=== PATIENT | female | born 1960 | race Caucasian/White ===

== ENCOUNTER → 2017-11-10 08:54 | Outpatient (CLI) | payer OTHER, SELFPAY ==
[2017-11-10 09:51] LABS: Add Manual Diff / Slide Review NO; Basophils Percent Auto 0.6 % (0-2); Eosinophils Percent Auto 0.9 % (2-4); Hematocrit 42.2 % (36-46); Hemoglobin 14.1 g/dL (12.0-16.0); Lymphocytes Percent Auto 38.1 % (25-40); Mean Corpuscular HGB Conc 33.6 % (30-36); Mean Corpuscular Hemoglobin 26.6 PG (26-34); Mean Corpuscular Volume 79.2 fL (80-100); Monocytes Percent Auto 5.7 % (3-14); Neutrophils Absolute Auto 4300 /uL (3000-5900); Neutrophils Percent Auto 54.7 % (50-75); Platelet Count 239 X10^3/uL (150-400); Red Blood Cell Count 5.32 X10^6/uL (4.0-5.2); White Blood Cell Count 7.9 X10^3/uL (4.5-11.0)
[2017-11-10 10:09] LABS: Appearance Urine UA CLEAR; Bilirubin Urine UA NEGATIVE (NEGATIVE); Color Urine UA YELLOW; Glucose Urine UA NEGATIVE (Normal); Ketones Urine UA NEGATIVE (NEGATIVE); Leukocyte Esterase Urine UA NEGATIVE (NEGATIVE); Nitrite Urine UA Negative (Negative); Occult Blood Urine UA 3+ (Negative); Protein Urine UA NEGATIVE (Negative); Specific Gravity Urine UA 1.015 (1.000-1.035); Urobilinogen Urine UA 0.2 E.U./dL (0.2); pH Urine UA 5.5 (4.5-8.0)
[2017-11-10 10:10] LABS: Albumin 4.2 g/dL (3.5-5.0); BUN Creatinine Ratio 15.6 (6-22); Blood Urea Nitrogen 14 mg/dL (7-17); Calcium 9.3 mg/dL (8.4-10.2); Carbon Dioxide 24 mmol/L (22-32); Chloride 107 mmol/L (98-107); Estimated Glomerular Filt Rate > 60.0 mL/min (>60); Glucose 102 mg/dL (70-100); HEMOLYSIS < 15 (0-50); Phosphorous 3.2 mg/dL (2.5-4.5); Potassium 4.5 mmol/L (3.4-5.1); Sodium 142 mmol/L (137-145)
[2017-11-10 10:37] LABS: Vitamin D 25 Hydroxy (D3) 27.5 ng/mL (30.0-100.0)
[2017-11-10 11:42] LABS: Bacteria Urine Few (2-10); Culture Indicated Urine Cult Not Indicated; RBC Urine 5-10/HPF (0-5/HPF); Squamous Epithelial Cell Urine 0-1 /HPF; WBC Urine 0-1/HPF (0-5/HPF)
[2017-11-12 14:17] LABS: Parathyroid Hormone Int 118 pg/mL (14-64)
[2017-11-13 16:48] LABS: Tacrolimus 6.9 mcg/L (5.0-20.0)
== END ==
PROVIDERS: Family Provider Family Medicine; PCP Family Medicine; Visit Provider Internal Medicine Nephrology
DX: Z94.0 Kidney transplant status (principal); N25.81 Secondary hyperparathyroidism of renal origin
CPT/HCPCS: 36415; 80069; 80197; 81001; 82306; 83970; 85025

== ENCOUNTER 2018-04-01 08:53 | Emergency (ER) | payer OTHER, SELFPAY ==
[2018-04-01 08:58] VITALS: BP 134/81; PULSE 99; RESP 22; TEMP 36.8; O2SAT 98; BMI 29.8
--- NOTE | 2018-04-01 09:38 | DI.RAD.S_ITS ---
PROCEDURE: XR CHEST 2V INDICATIONS: cough for 3 weeks TECHNIQUE: 2 views of the chest were acquired. COMPARISON: [facility], CHEST 2 VIEW, 10/23/2011, 8:00. [facility], CHEST 2 VIEW, 01/11/2016, 11:02. FINDINGS: Surgical changes and devices: None. Lungs and pleura: No pleural effusions or pneumothorax. Lungs are clear. Mediastinum: Mediastinal contours are normal. Heart size is normal. Bones and chest wall: No suspicious bony abnormalities. Soft tissues appear unremarkable. IMPRESSION: No acute cardiopulmonary disease. Dictated by: Odalys Bermeo M.D. on 04/01/2018 at 10:51 Approved by: Odalys Bermeo M.D. on 04/01/2018 at 10:53
[2018-04-01 10:07] LABS: Influenza A and B by PCR Rapid Negative (Negative)
--- NOTE | 2018-04-01 10:32 | ED.SOB ---
HPI - SOB/Dyspnea General Chief Complaint: Shortness of Breath/Dyspnea Stated Complaint: 'CHECKED FOR PNEUMONIA' Time Seen by Provider: 04/01/18 10:21 Source: patient and family () Mode of arrival: ambulatory Limitations: no limitations History of Present Illness This is a 57-year-old female comes to the emergency department with complaint of nasal congestion, cough that has been nonproductive for the last 4 weeks. Patient states she saw called her primary care physician who put her on amoxicillin she is on day 6 of a 10 day course. Patient has not had any known fevers although she has felt hot and cold at home overnight. She has not really had any chest congestion it has been more upper respiratory. She is not having any wheezing or difficulty with breathing. She denies any chest pain. She denies any nausea and/or vomiting. She denies any GI or urinary symptoms. She has a history significant for renal transplant and is on immunosuppressive medications. 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 Patient has tried some Flonase but without any success. Related Data Home Medications Medication Instructions Recorded Confirmed mycophenolate mofetil [CellCept] 500 mg PO BID #0 10/17/11 04/01/18 tacrolimus [Prograf] mg PO #0 10/17/11 amoxicillin-pot clavulanate 875 mg PO BIDX10 04/01/18 04/01/18 [Augmentin] citalopram [Celexa] 20 mg PO DAILY 04/01/18 04/01/18 Previous Rx's Medication Instructions Recorded zolpidem 5 mg PO HS #30 tab 05/01/16 codeine-guaifenesin [Cheratussin 10 ml PO Q4-6H PRN #118 ml 04/01/18 AC] Allergies Allergy/AdvReac Type Severity Reaction Status Date / Time latex [LATEX] Allergy Unknown Unverified 07/01/17 13:07 NSAIDS (Non-Steroidal Allergy Unknown UNKNOWN - Unverified 07/01/17 13:07 Anti-Inflamma HAS KIDNEY TRANSPLANT TAPE Allergy Mild RASH Uncoded 07/01/17 13:07 Review of Systems Review of Systems ROS Unobtainable: All systems reviewed & are unremarkable except as noted in HPI and below Constitutional Denies chills, Denies excessive sweating, Denies fever(s), Denies headache(s), Denies lethargy and Denies weakness ENT Ears, Nose, Mouth, and Throat: Denies headache(s) and Reports nasal congestion Cardiovascular Denies chest pain, Denies irregular heart rhythm, Denies lightheadedness, Denies palpitations, Denies dyspnea, Denies dyspnea on exertion and Denies orthopnea Respiratory Reports change in phlegm color (green), Denies chest congestion, Reports cough, Denies excessive phlegm production, Denies pain on inspiration, Denies pain with cough, Denies dyspnea, Denies dyspnea on exertion and Denies wheezing Gastrointestinal Gastrointestinal: Denies abdominal pain, Denies change in bowel habits, Denies diarrhea, Denies nausea and Denies vomiting Musculoskeletal Reports myalgias Integumentary/Breasts Denies rash Neurologic Denies headache(s) and Denies weakness Endocrine Denies excessive sweating and Denies palpitations Allergic/Immunologic Denies wheezing PFSH Surgical History Renal transplant, status post (Acute) Status post delivery Status post delivery Status post delivery Status post delivery Family History Mother Age: 77 Uncomplicated asthma, unspecified asthma severity Social History Smoking Status: Never smoker Exam Narrative Exam Narrative: GEN: well nourished, well appearing female, alert and oriented x 3, patient appears to be in mild distress. HEENT: Atraumatic, pupils are equal round reactive to light, extraocular movements are intact, nares clear bilateral, TMs are clear with no fluid, there is no conjunctival pallor. Throat is clear without any exudates, erythema, tonsillar enlargement or uvular deviation, mild cervical lymphadenopathy. HEART: Regular rate and rhythm without murmur, clicks, rubs. LUNGS:Lungs clear to auscultation, no wheezes, rales, crackles, chest moves symmetrically, no tachypnea, no accessory muscle use. Patient does cough with deep inhalation. ABD:bowel sounds normal, soft, non-tender, no guarding, rebound, rigidity, no masses noted, no hepatosplenomegaly MSCL: Non-tender, no muscle atrophy, muscles strength 5/5 upper and lower extremities, full range of motion, normal gait NEURO:CN 2-12 intact, sensation normal Initial Vital Signs Initial Vital Signs: Vital Signs Temperature 98.2 F 04/01/18 08:58 Pulse Rate 99 H 04/01/18 08:58 Respiratory Rate 22 04/01/18 08:58 Blood Pressure 134/81 04/01/18 08:58 Pulse Oximetry 98 04/01/18 08:58 Course Orders Ordered: ED Orders 04/01/18 11:03 Blood Culture Stat Complete Blood Count AUTO DIFF Stat Comprehensive Metabolic Panel Stat Lactate (Lactic Acid) Stat Procalcitonin Stat Vital Signs - 8 hr 04/01/18 12:19 Pulse Rate 90 Respiratory Rate 20 Blood Pressure 115/75 Pulse Oximetry 100 MDM - SOB/Dyspnea Lab Data Attestation: I reviewed the patient's lab results. Result diagrams: 04/01/18 11:03 04/01/18 11:03 Lab Results 04/01/18 04/01/18 04/01/18 Range/Units 09:40 11:03 11:03 WBC 9.1 (4.5-11.0) X10^3/uL RBC 5.31 H (4.0-5.2) X10^6/uL Hgb 14.2 (12.0-16.0) g/dL Hct 42.4 (36-46) % MCV 79.8 L (80-100) fL MCH 26.7 (26-34) PG MCHC 33.5 (30-36) % RDW 14.7 (11.6-14.8) % Plt Count 230 (150-400) X10^3/uL Neut % (Auto) 62.3 (50-75) % Lymph % (Auto) 29.5 (25-40) % [place] % (Auto) 6.1 (3-14) % Eos % (Auto) 1.6 L (2-4) % Baso % (Auto) 0.5 (0-2) % Neut # (Auto) 5700 (2737-8223) /uL Sodium (137-145) mmol/L Potassium (3.4-5.1) mmol/L Chloride (98-107) mmol/L Carbon Dioxide (22-32) mmol/L BUN (7-17) mg/dL Creatinine (0.52-1.04) mg/dL Estimated GFR (>60) mL/min BUN/Creatinine Ratio (6-22) Glucose (70-100) mg/dL Lactate (0.7-2.1) mmol/L Calcium (8.4-10.2) mg/dL Total Bilirubin (0.2-1.3) mg/dL AST (14-36) IU/L ALT (9-52) IU/L Alkaline Phosphatase (38-126) U/L Total Protein (6.3-8.2) g/dL Albumin (3.5-5.0) g/dL Globulin (1.7-4.1) g/dL Albumin/Globulin Ratio (1.0-2.8) Procalcitonin < 0.05 (<0.5) ng/mL Influenza A & B (PCR) Negative (Negative) 04/01/18 04/01/18 Range/Units 11:03 11:03 WBC (4.5-11.0) X10^3/uL RBC (4.0-5.2) X10^6/uL Hgb (12.0-16.0) g/dL Hct (36-46) % MCV (80-100) fL MCH (26-34) PG MCHC (30-36) % RDW (11.6-14.8) % Plt Count (150-400) X10^3/uL Neut % (Auto) (50-75) % Lymph % (Auto) (25-40) % [place] % (Auto) (3-14) % Eos % (Auto) (2-4) % Baso % (Auto) (0-2) % Neut # (Auto) (3672-2602) /uL Sodium 141 (137-145) mmol/L Potassium 4.6 (3.4-5.1) mmol/L Chloride 106 (98-107) mmol/L Carbon Dioxide 25 (22-32) mmol/L BUN 14 (7-17) mg/dL Creatinine 0.80 (0.52-1.04) mg/dL Estimated GFR > 60.0 (>60) mL/min BUN/Creatinine Ratio 17.5 (6-22) Glucose 86 (70-100) mg/dL Lactate 0.8 (0.7-2.1) mmol/L Calcium 9.6 (8.4-10.2) mg/dL Total Bilirubin 0.5 (0.2-1.3) mg/dL AST 28 (14-36) IU/L ALT 26 (9-52) IU/L Alkaline Phosphatase 102 (38-126) U/L Total Protein 8.0 (6.3-8.2) g/dL Albumin 4.2 (3.5-5.0) g/dL Globulin 3.8 (1.7-4.1) g/dL Albumin/Globulin Ratio 1.1 (1.0-2.8) Procalcitonin (<0.5) ng/mL Influenza A & B (PCR) (Negative) Imaging Data Chest x-ray: Radiologist's impression: [address] [address] XRay Report Signed Patient: Octavia Sanches MR#: [id number] : 1960 Acct:[id number] Age/Sex: 57 / F Date of Service: 04/01/18 Loc: ED Accession Number: [id number] Procedure: XR chest 2V Ordering Provider: Tonia Banks D.O. PROCEDURE: XR CHEST 2V INDICATIONS: cough for 3 weeks TECHNIQUE: 2 views of the chest were acquired. COMPARISON: [facility], CHEST 2 VIEW, 10/23/2011, 8:00. [facility], CHEST 2 VIEW, 01/11/2016, 11:02. FINDINGS: Surgical changes and devices: None. Lungs and pleura: No pleural effusions or pneumothorax. Lungs are clear. Mediastinum: Mediastinal contours are normal. Heart size is normal. Bones and chest wall: No suspicious bony abnormalities. Soft tissues appear unremarkable. IMPRESSION: No acute cardiopulmonary disease. Dictated by: Odalys Bermeo M.D. on 04/01/2018 at 10:51 Approved by: Odalys Bermeo M.D. on 04/01/2018 at 10:53 [facility] Narrative Medical decision making narrative: Discussed patient she has been on amoxicillin for almost a complete course. She does not have any changes on her chest x-ray is clear on exam. I do not think that she has a pneumonia at this time. Influenza swab was negative. She does have quite a bit of nasal congestion. She does not have any sinus pressure or other symptoms concerning for bacterial sinusitis. We did did discuss of Flonase is not helpful we could try a little bit of Afrin although she will uses for about 2 days. Sudafed is probably not appropriate medication with her renal transplant history. We could do some anti cough medication. I do recommend she has another follow-up in the short term as she does have some immune suppression but not finding any other concerning symptoms or other signs of major infection at this time. Discharge Plan Departure Patient Disposition: Home Clinical Impression: URI (upper respiratory infection) Discharge Date/Time: 04/01/18 12:20 Interventions: ED Discharge Assessment Last Done: 04/01/18 12:19 Instructions: DI for Viral Upper Respiratory Infection -- Adult Activity Restrictions/Additional Instructions: Follow-up with your physician or transplant team in the next 3-5 days for recheck. Call today for an appointment. I would recommend that you continue Flonase. You may use Afrin once daily for 2 days do not use for prolonged perior or you will get rebound nasal congestion. You may take cough medication as prescribed, this medication can make you sleepy do not drive, perform hazards activities or make any major decisions while taking these medications. Do not take with other sleep aids or alcohol/depressants. Continue your other home medications as prescribed. Return to the emergency department for fevers that are persistent, difficulty breathing, new chest pain or pressure, passing out, persistent vomiting, stridor or audible wheezing or other new or concerning symptoms. Prescriptions: New codeine-guaifenesin [Cheratussin AC] 10-100 mg/5 mL liquid 10 ml PO Q4-6H PRN (Reason: cough) Qty: 118 RF: 0 No Action tacrolimus [Prograf] 1 MG capsule PO Qty: 0 RF: 0 mycophenolate mofetil [CellCept] 500 MG tablet 500 mg PO BID Qty: 0 RF: 0 zolpidem 5 MG tablet 5 mg PO HS Qty: 30 RF: 1 citalopram [Celexa] 20 mg tablet 20 mg PO DAILY RF: 0 amoxicillin-pot clavulanate [Augmentin] 875 MG/125 MG tablet 875 mg PO BIDX10 RF: 0
[2018-04-01 11:25] LABS: Add Manual Diff / Slide Review NO; Basophils Percent Auto 0.5 % (0-2); Eosinophils Percent Auto 1.6 % (2-4); Hematocrit 42.4 % (36-46); Hemoglobin 14.2 g/dL (12.0-16.0); Lymphocytes Percent Auto 29.5 % (25-40); Mean Corpuscular HGB Conc 33.5 % (30-36); Mean Corpuscular Hemoglobin 26.7 PG (26-34); Mean Corpuscular Volume 79.8 fL (80-100); Monocytes Percent Auto 6.1 % (3-14); Neutrophils Absolute Auto 5700 /uL (1500-7000); Neutrophils Percent Auto 62.3 % (50-75); Platelet Count 230 X10^3/uL (150-400); Red Blood Cell Count 5.31 X10^6/uL (4.0-5.2); Red Cell Distribution Width 14.7 % (11.6-14.8); White Blood Cell Count 9.1 X10^3/uL (4.5-11.0)
[2018-04-01 11:26] VITALS: BP 126/79; PULSE 80; RESP 18; O2SAT 96
[2018-04-01 11:36] LABS: Lactate (Lactic Acid) 0.8 mmol/L (0.7-2.1)
[2018-04-01 11:37] LABS: Alanine Aminotransferase 26 IU/L (9-52); Albumin 4.2 g/dL (3.5-5.0); Albumin Globulin Ratio 1.1 (1.0-2.8); Alkaline Phosphatase 102 U/L (38-126); Aspartate Aminotransferase 28 IU/L (14-36); BUN Creatinine Ratio 17.5 (6-22); Bilirubin Total 0.5 mg/dL (0.2-1.3); Blood Urea Nitrogen 14 mg/dL (7-17); Calcium 9.6 mg/dL (8.4-10.2); Carbon Dioxide 25 mmol/L (22-32); Chloride 106 mmol/L (98-107); Estimated Glomerular Filt Rate > 60.0 mL/min (>60); Globulin 3.8 g/dL (1.7-4.1); Glucose 86 mg/dL (70-100); HEMOLYSIS < 15 (0-50); Potassium 4.6 mmol/L (3.4-5.1); Sodium 141 mmol/L (137-145)
[2018-04-01 11:55] LABS: Procalcitonin < 0.05 ng/mL (<0.5)
--- NOTE | 2018-04-01 12:08 | ED_ITS ---
HPI - SOB/Dyspnea General Chief Complaint: Shortness of Breath/Dyspnea Stated Complaint: 'CHECKED FOR PNEUMONIA' Time Seen by Provider: 04/01/18 10:21 Source: patient and family () Mode of arrival: ambulatory Limitations: no limitations History of Present Illness This is a 57-year-old female comes to the emergency department with complaint of nasal congestion, cough that has been nonproductive for the last 4 weeks. Patient states she saw called her primary care physician who put her on amoxicillin she is on day 6 of a 10 day course. Patient has not had any known fevers although she has felt hot and cold at home overnight. She has not really had any chest congestion it has been more upper respiratory. She is not having any wheezing or difficulty with breathing. She denies any chest pain. She denies any nausea and/or vomiting. She denies any GI or urinary symptoms. She has a history significant for renal transplant and is on immunosuppressive medications. 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 Patient has tried some Flonase but without any success. Related Data Home Medications Medication Instructions Recorded Confirmed mycophenolate mofetil [CellCept] 500 mg PO BID #0 10/17/11 04/01/18 tacrolimus [Prograf] mg PO #0 10/17/11 amoxicillin-pot clavulanate 875 mg PO BIDX10 04/01/18 04/01/18 [Augmentin] citalopram [Celexa] 20 mg PO DAILY 04/01/18 04/01/18 Previous Rx's Medication Instructions Recorded zolpidem 5 mg PO HS #30 tab 05/01/16 codeine-guaifenesin [Cheratussin 10 ml PO Q4-6H PRN #118 ml 04/01/18 AC] Allergies Allergy/AdvReac Type Severity Reaction Status Date / Time latex [LATEX] Allergy Unknown Unverified 07/01/17 13:07 NSAIDS (Non-Steroidal Allergy Unknown UNKNOWN - Unverified 07/01/17 13:07 Anti-Inflamma HAS KIDNEY TRANSPLANT TAPE Allergy Mild RASH Uncoded 07/01/17 13:07 Review of Systems Review of Systems ROS Unobtainable: All systems reviewed & are unremarkable except as noted in HPI and below Constitutional Denies chills, Denies excessive sweating, Denies fever(s), Denies headache(s), Denies lethargy and Denies weakness ENT Ears, Nose, Mouth, and Throat: Denies headache(s) and Reports nasal congestion Cardiovascular Denies chest pain, Denies irregular heart rhythm, Denies lightheadedness, Denies palpitations, Denies dyspnea, Denies dyspnea on exertion and Denies orthopnea Respiratory Reports change in phlegm color (green), Denies chest congestion, Reports cough, Denies excessive phlegm production, Denies pain on inspiration, Denies pain with cough, Denies dyspnea, Denies dyspnea on exertion and Denies wheezing Gastrointestinal Gastrointestinal: Denies abdominal pain, Denies change in bowel habits, Denies diarrhea, Denies nausea and Denies vomiting Musculoskeletal Reports myalgias Integumentary/Breasts Denies rash Neurologic Denies headache(s) and Denies weakness Endocrine Denies excessive sweating and Denies palpitations Allergic/Immunologic Denies wheezing PFSH Surgical History Renal transplant, status post (Acute) Status post delivery Status post delivery Status post delivery Status post delivery Family History Mother Age: 77 Uncomplicated asthma, unspecified asthma severity Social History Smoking Status: Never smoker Exam Narrative Exam Narrative: GEN: well nourished, well appearing female, alert and oriented x 3, patient appears to be in mild distress. HEENT: Atraumatic, pupils are equal round reactive to light, extraocular movements are intact, nares clear bilateral, TMs are clear with no fluid, there is no conjunctival pallor. Throat is clear without any exudates, erythema, tonsillar enlargement or uvular deviation, mild cervical lymphadenopathy. HEART: Regular rate and rhythm without murmur, clicks, rubs. LUNGS:Lungs clear to auscultation, no wheezes, rales, crackles, chest moves symmetrically, no tachypnea, no accessory muscle use. Patient does cough with deep inhalation. ABD:bowel sounds normal, soft, non-tender, no guarding, rebound, rigidity, no masses noted, no hepatosplenomegaly MSCL: Non-tender, no muscle atrophy, muscles strength 5/5 upper and lower extremities, full range of motion, normal gait NEURO:CN 2-12 intact, sensation normal Initial Vital Signs Initial Vital Signs: Vital Signs Temperature 98.2 F 04/01/18 08:58 Pulse Rate 99 H 04/01/18 08:58 Respiratory Rate 22 04/01/18 08:58 Blood Pressure 134/81 04/01/18 08:58 Pulse Oximetry 98 04/01/18 08:58 Course Orders Ordered: ED Orders 04/01/18 11:03 Blood Culture Stat Complete Blood Count AUTO DIFF Stat Comprehensive Metabolic Panel Stat Lactate (Lactic Acid) Stat Procalcitonin Stat Vital Signs - 8 hr 04/01/18 12:19 Pulse Rate 90 Respiratory Rate 20 Blood Pressure 115/75 Pulse Oximetry 100 MDM - SOB/Dyspnea Lab Data Attestation: I reviewed the patient's lab results. Result diagrams: 04/01/18 11:03 04/01/18 11:03 Lab Results 04/01/18 04/01/18 04/01/18 Range/Units 09:40 11:03 11:03 WBC 9.1 (4.5-11.0) X10^3/uL RBC 5.31 H (4.0-5.2) X10^6/uL Hgb 14.2 (12.0-16.0) g/dL Hct 42.4 (36-46) % MCV 79.8 L (80-100) fL MCH 26.7 (26-34) PG MCHC 33.5 (30-36) % RDW 14.7 (11.6-14.8) % Plt Count 230 (150-400) X10^3/uL Neut % (Auto) 62.3 (50-75) % Lymph % (Auto) 29.5 (25-40) % [place] % (Auto) 6.1 (3-14) % Eos % (Auto) 1.6 L (2-4) % Baso % (Auto) 0.5 (0-2) % Neut # (Auto) 5700 (1337-3983) /uL Sodium (137-145) mmol/L Potassium (3.4-5.1) mmol/L Chloride (98-107) mmol/L Carbon Dioxide (22-32) mmol/L BUN (7-17) mg/dL Creatinine (0.52-1.04) mg/dL Estimated GFR (>60) mL/min BUN/Creatinine Ratio (6-22) Glucose (70-100) mg/dL Lactate (0.7-2.1) mmol/L Calcium (8.4-10.2) mg/dL Total Bilirubin (0.2-1.3) mg/dL AST (14-36) IU/L ALT (9-52) IU/L Alkaline Phosphatase (38-126) U/L Total Protein (6.3-8.2) g/dL Albumin (3.5-5.0) g/dL Globulin (1.7-4.1) g/dL Albumin/Globulin Ratio (1.0-2.8) Procalcitonin < 0.05 (<0.5) ng/mL Influenza A & B (PCR) Negative (Negative) 04/01/18 04/01/18 Range/Units 11:03 11:03 WBC (4.5-11.0) X10^3/uL RBC (4.0-5.2) X10^6/uL Hgb (12.0-16.0) g/dL Hct (36-46) % MCV (80-100) fL MCH (26-34) PG MCHC (30-36) % RDW (11.6-14.8) % Plt Count (150-400) X10^3/uL Neut % (Auto) (50-75) % Lymph % (Auto) (25-40) % [place] % (Auto) (3-14) % Eos % (Auto) (2-4) % Baso % (Auto) (0-2) % Neut # (Auto) (9867-9941) /uL Sodium 141 (137-145) mmol/L Potassium 4.6 (3.4-5.1) mmol/L Chloride 106 (98-107) mmol/L Carbon Dioxide 25 (22-32) mmol/L BUN 14 (7-17) mg/dL Creatinine 0.80 (0.52-1.04) mg/dL Estimated GFR > 60.0 (>60) mL/min BUN/Creatinine Ratio 17.5 (6-22) Glucose 86 (70-100) mg/dL Lactate 0.8 (0.7-2.1) mmol/L Calcium 9.6 (8.4-10.2) mg/dL Total Bilirubin 0.5 (0.2-1.3) mg/dL AST 28 (14-36) IU/L ALT 26 (9-52) IU/L Alkaline Phosphatase 102 (38-126) U/L Total Protein 8.0 (6.3-8.2) g/dL Albumin 4.2 (3.5-5.0) g/dL Globulin 3.8 (1.7-4.1) g/dL Albumin/Globulin Ratio 1.1 (1.0-2.8) Procalcitonin (<0.5) ng/mL Influenza A & B (PCR) (Negative) Imaging Data Chest x-ray: Radiologist's impression: [address] [address] XRay Report Signed Patient: Octavia Sanches MR#: [id number] : 1960 Acct:[id number] Age/Sex: 57 / F Date of Service: 04/01/18 Loc: ED Accession Number: [id number] Procedure: XR chest 2V Ordering Provider: Tonia Banks D.O. PROCEDURE: XR CHEST 2V INDICATIONS: cough for 3 weeks TECHNIQUE: 2 views of the chest were acquired. COMPARISON: [facility], CHEST 2 VIEW, 10/23/2011, 8:00. [facility], CHEST 2 VIEW, 01/11/2016, 11:02. FINDINGS: Surgical changes and devices: None. Lungs and pleura: No pleural effusions or pneumothorax. Lungs are clear. Mediastinum: Mediastinal contours are normal. Heart size is normal. Bones and chest wall: No suspicious bony abnormalities. Soft tissues appear unremarkable. IMPRESSION: No acute cardiopulmonary disease. Dictated by: Odalys Bermeo M.D. on 04/01/2018 at 10:51 Approved by: Odalys Bermeo M.D. on 04/01/2018 at 10:53 [facility] Narrative Medical decision making narrative: Discussed patient she has been on amoxicillin for almost a complete course. She does not have any changes on her chest x-ray is clear on exam. I do not think that she has a pneumonia at this time. Influenza swab was negative. She does have quite a bit of nasal congestion. She does not have any sinus pressure or other symptoms concerning for bacterial sinusitis. We did did discuss of Flonase is not helpful we could try a little bit of Afrin although she will uses for about 2 days. Sudafed is probably not appropriate medication with her renal transplant history. We could do some anti cough medication. I do recommend she has another follow-up in the short term as she does have some immune suppression but not finding any other concerning symptoms or other signs of major infection at this time. Discharge Plan Departure Patient Disposition: Home Clinical Impression: URI (upper respiratory infection) Discharge Date/Time: 04/01/18 12:20 Interventions: ED Discharge Assessment Last Done: 04/01/18 12:19 Instructions: DI for Viral Upper Respiratory Infection -- Adult Activity Restrictions/Additional Instructions: Follow-up with your physician or transplant team in the next 3-5 days for recheck. Call today for an appointment. I would recommend that you continue Flonase. You may use Afrin once daily for 2 days do not use for prolonged perior or you will get rebound nasal congestion. You may take cough medication as prescribed, this medication can make you sleepy do not drive, perform hazards activities or make any major decisions while taking these medications. Do not take with other sleep aids or alcohol/ depressants. Continue your other home medications as prescribed. Return to the emergency department for fevers that are persistent, difficulty breathing, new chest pain or pressure, passing out, persistent vomiting, stridor or audible wheezing or other new or concerning symptoms. Prescriptions: New codeine-guaifenesin [Cheratussin AC] 10-100 mg/5 mL liquid 10 ml PO Q4-6H PRN (Reason: cough) Qty: 118 RF: 0 No Action tacrolimus [Prograf] 1 MG capsule PO Qty: 0 RF: 0 mycophenolate mofetil [CellCept] 500 MG tablet 500 mg PO BID Qty: 0 RF: 0 zolpidem 5 MG tablet 5 mg PO HS Qty: 30 RF: 1 citalopram [Celexa] 20 mg tablet 20 mg PO DAILY RF: 0 amoxicillin-pot clavulanate [Augmentin] 875 MG/125 MG tablet 875 mg PO BIDX10 RF: 0
[2018-04-01 12:19] VITALS: BP 115/75; PULSE 90; RESP 20; O2SAT 100
== END 2018-04-01 12:20 | disposition home or self-care (01) ==
PROVIDERS: Emergency Provider Emergency Medicine; Family Provider Family Medicine; PCP Family Medicine
DX: J06.9 Acute upper respiratory infection, unspecified (principal)
CPT/HCPCS: 36415; 71046; 80053; 83605; 84145; 85025; 87040; 87400; 99282; 99284

== ENCOUNTER → 2018-11-16 09:46 | Outpatient (CLI) | payer OTHER, SELFPAY ==
[2018-11-16 09:58] LABS: WBC Urine None Seen (0-5/HPF)
[2018-11-16 10:55] LABS: Add Manual Diff / Slide Review NO; Basophils Absolute Auto 100 /uL (0-100); Basophils Percent Auto 0.7 % (0-2); Eosinophils Absolute Auto 100 /uL (0-450); Eosinophils Percent Auto 1.4 % (2-4); Hematocrit 42.3 % (36-46); Hemoglobin 14.2 g/dL (12.0-16.0); Lymphocytes Absolute Auto 2400 /uL (1100-4500); Lymphocytes Percent Auto 28.2 % (25-40); Mean Corpuscular HGB Conc 33.5 % (30-36); Mean Corpuscular Hemoglobin 26.5 PG (26-34); Mean Corpuscular Volume 79.1 fL (80-100); Monocytes Absolute Auto 400 /uL (0-900); Monocytes Percent Auto 5.1 % (3-14); Neutrophils Absolute Auto 5400 /uL (1500-7000); Neutrophils Percent Auto 64.6 % (50-75); Platelet Count 224 X10^3/uL (150-400); Red Blood Cell Count 5.35 X10^6/uL (4.0-5.2); Red Cell Distribution Width 15.2 % (11.6-14.8); White Blood Cell Count 8.4 X10^3/uL (4.5-11.0)
[2018-11-16 11:07] LABS: Albumin 4.1 g/dL (3.5-5.0); BUN Creatinine Ratio 22.5 (6-22); Blood Urea Nitrogen 18 mg/dL (7-17); Calcium 9.5 mg/dL (8.4-10.2); Carbon Dioxide 22 mmol/L (22-32); Chloride 107 mmol/L (98-107); Estimated Glomerular Filt Rate > 60.0 mL/min (>60); Glucose 96 mg/dL (70-100); HEMOLYSIS < 15 (0-50); Phosphorous 2.5 mg/dL (2.5-4.5); Potassium 4.5 mmol/L (3.4-5.1); Sodium 139 mmol/L (137-145)
[2018-11-16 11:09] LABS: Appearance Urine UA CLEAR; Bilirubin Urine UA NEGATIVE (NEGATIVE); Color Urine UA YELLOW; Glucose Urine UA NEGATIVE (Negative); Ketones Urine UA NEGATIVE (NEGATIVE); Leukocyte Esterase Urine UA NEGATIVE (NEGATIVE); Nitrite Urine UA NEGATIVE (Negative); Occult Blood Urine UA 3+ (Negative); Protein Urine UA NEGATIVE (Negative); Urobilinogen Urine UA 0.2 E.U./dL (0.2); pH Urine UA 5.5 (4.5-8.0)
[2018-11-16 11:39] LABS: RBC Urine 0-1/HPF (0-5/HPF); Squamous Epithelial Cell Urine 0-1 /HPF (0-5/HPF)
[2018-11-16 11:40] LABS: Bacteria Urine Occasional (0-1); Culture Indicated Urine Cult Not Indicated
[2018-11-16 11:42] LABS: Vitamin D 25 Hydroxy (D3) 26.2 ng/mL (30.0-100.0)
[2018-11-20 16:21] LABS: Calcium 8.6 mg/dL (8.6-10.4); Parathyroid Hormone, Intact 47 pg/mL (14-64)
== END ==
PROVIDERS: PCP Family Medicine; Visit Provider Internal Medicine Nephrology
DX: N18.2 Chronic kidney disease, stage 2 (mild) (principal); R31.9 Hematuria, unspecified; Z94.0 Kidney transplant status; E55.9 Vitamin D deficiency, unspecified
CPT/HCPCS: 36415; 80069; 80197; 81001; 82306; 83970; 85025; 87086

== ENCOUNTER 2019-04-27 06:31 | Emergency (ER) | payer OTHER, SELFPAY ==
[2019-04-27 06:39] VITALS: BP 127/83; PULSE 111; RESP 22; TEMP 39; O2SAT 97; BMI 31.6
--- NOTE | 2019-04-27 07:03 | ED.FEVER ---
HPI - Fever General Chief Complaint: Fever Stated Complaint: has kidney transplant, states she has flu Time Seen by Provider: 04/27/19 07:03 Source: patient Mode of arrival: Ambulatory Limitations: no limitations History of Present Illness HPI Narrative: This is a 58-year-old female comes emergency department complaint of flu-like symptoms. Patient states she has had nasal congestion, her ears have felt full she has not been able to pop them easily. She has had a cough with productive green sputum she denies any chest pain, she does not feel very short of breath but states she has been coughing a lot. She has also had nausea vomiting as well as diarrhea. Patient denies any abdominal pain. She denies any urinary frequency, dysuria for urgency. She states she does seem like there is a little bit less output than typical. Her had similar symptoms for several days. They just recently returned from [place]. Patient states she has had 4 days of symptoms but did think that she had any fevers until today. They flew back yesterday she states she has been feeling much worse. She has a history significant for renal transplant approximately 12 years ago. 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 She does have hypertension. She denies any other medical issues. She has had a in the past. Denies any allergies to medications. Denies any tobacco. She gets her Nephrology care through [facility]. Related Data Home Medications Medication Instructions Recorded Confirmed mycophenolate mofetil [CellCept] 500 mg PO BID #0 10/17/11 04/01/18 tacrolimus [Prograf] mg PO #0 10/17/11 amoxicillin-pot clavulanate 875 mg PO BIDX10 04/01/18 04/01/18 [Augmentin] citalopram [Celexa] 20 mg PO DAILY 04/01/18 04/01/18 Previous Rx's Medication Instructions Recorded zolpidem 5 mg PO HS #30 tab 05/01/16 codeine-guaifenesin [Cheratussin 10 ml PO Q4-6H PRN #118 ml 04/01/18 AC] ondansetron HCl [Zofran] 4 mg PO Q6H PRN #10 tab 04/27/19 Allergies Allergy/AdvReac Type Severity Reaction Status Date / Time latex [LATEX] Allergy Unknown Verified 04/27/19 06:42 NSAIDS (Non-Steroidal Allergy Unknown UNKNOWN - Verified 04/27/19 06:42 Anti-Inflamma HAS KIDNEY TRANSPLANT TAPE Allergy Mild RASH Uncoded 04/27/19 06:42 Review of Systems Review of Systems ROS Unobtainable: All systems reviewed & are unremarkable except as noted in HPI and below Patient History Surgical History Renal transplant, status post (Acute) Status post delivery Status post delivery Status post delivery Status post delivery Family History (Updated 02/26/15 @ 00:00 by Conversion Provider) Mother Age: 78 Uncomplicated asthma, unspecified asthma severity Social History Smoking Status: Never smoker Smoking Status: Never smoker alcohol intake frequency: 0-2 drinks per day Substance Use Type: does not use Exam Narrative Exam Narrative: GEN: well nourished, well appearing female, alert and oriented x 3, patient appears to be in mild distress. HEENT: Atraumatic, pupils are equal round reactive to light, extraocular movements are intact, nares show bilateral nasal congestion TMs are clear with no fluid. Throat is clear without any exudates, erythema, tonsillar enlargement or uvular deviation HEART: Regular rate and rhythm without murmur, clicks, rubs. Pulses are equal in upper and lower extremities. No edema bilateral lower extremities. LUNGS:Lungs clear to auscultation, no wheezes, rales, crackles, chest moves symmetrically, no tachypnea accessory muscle use. ABD:bowel sounds normal, soft, non-tender, no guarding, rebound, rigidity, no masses noted, no hepatosplenomegaly :No CVA tenderness. MSCL: Non-tender, no muscle atrophy, muscles strength 5/5 upper and lower extremities, full range of motion NEURO:CN 2-12 intact, sensation normal. SKIN: No rash, no erythema. No petechiae. Initial Vital Signs Initial Vital Signs: Vital Signs Temperature 102.2 F H 04/27/19 06:39 Pulse Rate 111 H 04/27/19 06:39 Respiratory Rate 22 04/27/19 06:39 Blood Pressure 127/83 04/27/19 06:39 Pulse Oximetry 97 04/27/19 06:39 Course Orders Ordered: ED Orders 04/27/19 06:50 Blood Culture Stat Complete Blood Count AUTO DIFF Stat Comprehensive Metabolic Panel Stat Lactate (Lactic Acid) Stat Lipase Stat Procalcitonin Stat 04/27/19 07:00 Flu test [Influenza A & B (PCR)] Stat 04/27/19 07:12 XR chest 1V Stat Discontinued Medications Acetaminophen (Tylenol) 650 mg PO NOW ONE Stop: 04/27/19 07:14 Last Admin: 04/27/19 07:30 Dose: 650 mg Documented by: BRITNEY Sodium Chloride (Normal Saline 0.9%) 1,000 mls @ 1,000 mls/hr IV BOLUS ONE Stop: 04/27/19 08:16 Last Admin: 04/27/19 07:30 Dose: 1,000 mls/hr Documented by: BRITNEY Ondansetron HCl (Zofran) 4 mg IV NOW ONE Stop: 04/27/19 07:14 Last Admin: 04/27/19 07:30 Dose: 4 mg Documented by: BRITNEY Vital Signs Vital signs: Vital Signs - 8 hr 04/27/19 06:39 04/27/19 08:36 Temperature 102.2 F H Pulse Rate 111 H 91 H Respiratory Rate 22 23 Blood Pressure 127/83 Blood Pressure [Right Arm] 127/83 Pulse Oximetry 97 95 MDM - Fever Lab Data Attestation: I reviewed the patient's lab results. Result diagrams: 04/27/19 06:50 04/27/19 06:50 Labs: Lab Results 04/27/19 04/27/19 04/27/19 Range/Units 06:50 06:50 06:50 WBC 9.2 (4.5-11.0) X10^3/uL RBC 5.29 H (4.0-5.2) X10^6/uL Hgb 14.0 (12.0-16.0) g/dL Hct 42.0 (36-46) % MCV 79.4 L (80-100) fL MCH 26.5 (26-34) PG MCHC 33.3 (30-36) % RDW 15.2 H (11.6-14.8) % Plt Count 174 (150-400) X10^3/uL Neut % (Auto) 72.6 (50-75) % Lymph % (Auto) 19.4 L (25-40) % Weber % (Auto) 7.2 (3-14) % Eos % (Auto) 0.3 L (2-4) % Baso % (Auto) 0.5 (0-2) % Neut # (Auto) 6700 (3341-9728) /uL Lymph # (Auto) 1800 (8611-7167) /uL Weber # (Auto) 700 (0-900) /uL Eos # (Auto) 0 (0-450) /uL Baso # (Auto) 0 (0-100) /uL Sodium 138 (137-145) mmol/L Potassium 3.9 (3.4-5.1) mmol/L Chloride 103 (98-107) mmol/L Carbon Dioxide 24 (22-32) mmol/L BUN 16 (7-17) mg/dL Creatinine 1.00 (0.52-1.04) mg/dL Estimated GFR 57.4 L (>60) mL/min BUN/Creatinine Ratio 16.0 (6-22) Glucose 125 H (70-100) mg/dL Lactate (0.7-2.1) mmol/L Calcium 9.4 (8.4-10.2) mg/dL Total Bilirubin 0.7 (0.2-1.3) mg/dL AST 36 (14-36) IU/L ALT 22 (<35) IU/L Alkaline Phosphatase 114 (38-126) U/L Total Protein 8.4 H (6.3-8.2) g/dL Albumin 4.4 (3.5-5.0) g/dL Globulin 4.0 (1.7-4.1) g/dL Albumin/Globulin Ratio 1.1 (1.0-2.8) Lipase 104 (23-300) U/L Procalcitonin 0.17 (<0.5) ng/mL Influenza A (RT-PCR) (NEGATIVE) Influenza B (RT-PCR) (NEGATIVE) 04/27/19 04/27/19 Range/Units 06:50 07:00 WBC (4.5-11.0) X10^3/uL RBC (4.0-5.2) X10^6/uL Hgb (12.0-16.0) g/dL Hct (36-46) % MCV (80-100) fL MCH (26-34) PG MCHC (30-36) % RDW (11.6-14.8) % Plt Count (150-400) X10^3/uL Neut % (Auto) (50-75) % Lymph % (Auto) (25-40) % Weber % (Auto) (3-14) % Eos % (Auto) (2-4) % Baso % (Auto) (0-2) % Neut # (Auto) (6753-8185) /uL Lymph # (Auto) (9306-2338) /uL Weber # (Auto) (0-900) /uL Eos # (Auto) (0-450) /uL Baso # (Auto) (0-100) /uL Sodium (137-145) mmol/L Potassium (3.4-5.1) mmol/L Chloride (98-107) mmol/L Carbon Dioxide (22-32) mmol/L BUN (7-17) mg/dL Creatinine (0.52-1.04) mg/dL Estimated GFR (>60) mL/min BUN/Creatinine Ratio (6-22) Glucose (70-100) mg/dL Lactate 1.1 (0.7-2.1) mmol/L Calcium (8.4-10.2) mg/dL Total Bilirubin (0.2-1.3) mg/dL AST (14-36) IU/L ALT (<35) IU/L Alkaline Phosphatase (38-126) U/L Total Protein (6.3-8.2) g/dL Albumin (3.5-5.0) g/dL Globulin (1.7-4.1) g/dL Albumin/Globulin Ratio (1.0-2.8) Lipase (23-300) U/L Procalcitonin (<0.5) ng/mL Influenza A (RT-PCR) Flu a positive H (NEGATIVE) Influenza B (RT-PCR) Flu b negative (NEGATIVE) Imaging Data Chest x-ray: Radiologist's Impression: [address] [address] XRay Report Signed Patient: Octavia Sanches LMR#: [id number] : 1960Acct:[id number] Age/Sex: 58 / FDate of Service: 04/27/19 Loc: ED Accession Number: [id number] Procedure: XR chest 1V Ordering Provider: Tonia Banks D.O. PROCEDURE: XR CHEST 1V INDICATIONS: fever, cough, green sputum, ? influenza TECHNIQUE: One view of the chest was acquired. COMPARISON: [facility], , XR CHEST 2V, 04/01/2018, 9:57. [facility], , CHEST 2 VIEW, 01/11/2016, 11:02. FINDINGS: Surgical changes and devices: None. Lungs and pleura: Lungs are abnormal with a mild interstitial prominence but this has been previously present and may reflect a prior smoking history.. No pleural effusions or pneumothorax. Mediastinum: Mediastinal contours appear normal. Heart size is normal. Bones and chest wall: No suspicious bony lesions. Overlying soft tissues appear unremarkable. IMPRESSION: A definite pneumonia is not seen. Mild interstitial prominence slightly greater on the right than the left, similar to prior chest plain film imaging which may reflect prior smoking history. Dictated by: Marco A Camargo M.D. on 04/27/2019 at 8:07 Approved by: Marco A Camargo M.D. on 04/27/2019 at 8:08 MDM Narrative Medical decision making narrative: Patient is feeling better after Tylenol and Zofran. She is influenza positive. Her renal function is normal baseline. She has had about 2 days of true symptoms after discussion we discussed Tamiflu but with her renal history and there are some cautions and contraindications for renal patient's it was elected to not start Tamiflu at this time. Patient was given a L fluids. She is feeling much better at this time. Plan for short script of Zofran as needed with strict return precautions. 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 Patient technically meets septic criteria but is feeling much better and would like to return home. Discharge Plan Departure Patient Disposition: Home Clinical Impression: Influenza Discharge Date/Time: 04/27/19 09:19 Instructions: DI for Influenza -- Adult Activity Restrictions/Additional Instructions: Follow-up with your physician in the next several days for recheck. Call for an appointment. Continue home medications as prescribed. You may take tylenol up to a 1000 mg every 8 hours, or 3000mg in 24 hours. You may take zofran sublingually every 6 hours as nauseated. Return to the ER for worsening symptoms, new chest pain, shortness of breath, lightheadedness or passing out, persistent vomiting, bloody stools, abdominal pain, new swelling in your extremities, or decrease in her urine output or other new or concerning symptoms. Prescriptions: New ondansetron HCl [Zofran] 4 mg tablet 4 mg PO Q6H PRN (Reason: nausea and vomiting) Qty: 10 RF: 0 No Action tacrolimus [Prograf] 1 MG capsule PO Qty: 0 RF: 0 mycophenolate mofetil [CellCept] 500 MG tablet 500 mg PO BID Qty: 0 RF: 0 zolpidem 5 MG tablet 5 mg PO HS Qty: 30 RF: 1 citalopram [Celexa] 20 mg tablet 20 mg PO DAILY RF: 0 amoxicillin-pot clavulanate [Augmentin] 875 MG/125 MG tablet 875 mg PO BIDX10 RF: 0 codeine-guaifenesin [Cheratussin AC] 10-100 mg/5 mL liquid 10 ml PO Q4-6H PRN (Reason: cough) Qty: 118 RF: 0 Referrals: Melva Esquivel DO [Primary Care Provider] -
--- NOTE | 2019-04-27 07:12 | DI.RAD.S_ITS ---
PROCEDURE: XR CHEST 1V INDICATIONS: fever, cough, green sputum, ? influenza TECHNIQUE: One view of the chest was acquired. COMPARISON: [facility], [place], XR CHEST 2V, 04/01/2018, 9:57. [facility], [place], CHEST 2 VIEW, 01/11/2016, 11:02. FINDINGS: Surgical changes and devices: None. Lungs and pleura: Lungs are abnormal with a mild interstitial prominence but this has been previously present and may reflect a prior smoking history.. No pleural effusions or pneumothorax. Mediastinum: Mediastinal contours appear normal. Heart size is normal. Bones and chest wall: No suspicious bony lesions. Overlying soft tissues appear unremarkable. IMPRESSION: A definite pneumonia is not seen. Mild interstitial prominence slightly greater on the right than the left, similar to prior chest plain film imaging which may reflect prior smoking history. Dictated by: Marco A Camargo M.D. on 04/27/2019 at 8:07 Approved by: Marco A Camargo M.D. on 04/27/2019 at 8:08
[2019-04-27 07:26] LABS: Add Manual Diff / Slide Review NO; Basophils Absolute Auto 0 /uL (0-100); Basophils Percent Auto 0.5 % (0-2); Eosinophils Absolute Auto 0 /uL (0-450); Eosinophils Percent Auto 0.3 % (2-4); Lymphocytes Absolute Auto 1800 /uL (1100-4500); Lymphocytes Percent Auto 19.4 % (25-40); Mean Corpuscular HGB Conc 33.3 % (30-36); Mean Corpuscular Hemoglobin 26.5 PG (26-34); Mean Corpuscular Volume 79.4 fL (80-100); Monocytes Absolute Auto 700 /uL (0-900); Monocytes Percent Auto 7.2 % (3-14); Neutrophils Absolute Auto 6700 /uL (1500-7000); Neutrophils Percent Auto 72.6 % (50-75); Platelet Count 174 X10^3/uL (150-400); Red Blood Cell Count 5.29 X10^6/uL (4.0-5.2); Red Cell Distribution Width 15.2 % (11.6-14.8); White Blood Cell Count 9.2 X10^3/uL (4.5-11.0)
[2019-04-27] MEDS: SODIUM CHLORIDE 0.9% 1,000 ML 1000 ML IV (07:30)
[2019-04-27] MEDS: ONDANSETRON 4 MG/2 ML INJ IV (07:30)
[2019-04-27] MEDS: ACETAMINOPHEN 325 MG TABLET 650 MG PO (07:30)
[2019-04-27 07:32] LABS: Alanine Aminotransferase 22 IU/L (<35); Albumin 4.4 g/dL (3.5-5.0); Albumin Globulin Ratio 1.1 (1.0-2.8); Alkaline Phosphatase 114 U/L (38-126); Aspartate Aminotransferase 36 IU/L (14-36); Bilirubin Total 0.7 mg/dL (0.2-1.3); Blood Urea Nitrogen 16 mg/dL (7-17); Calcium 9.4 mg/dL (8.4-10.2); Carbon Dioxide 24 mmol/L (22-32); Chloride 103 mmol/L (98-107); Estimated Glomerular Filt Rate 57.4 mL/min (>60); Glucose 125 mg/dL (70-100); HEMOLYSIS < 15 (0-50); Lipase 104 U/L (23-300); Potassium 3.9 mmol/L (3.4-5.1); Sodium 138 mmol/L (137-145); Total Protein 8.4 g/dL (6.3-8.2)
[2019-04-27 07:33] LABS: Lactate (Lactic Acid) 1.1 mmol/L (0.7-2.1)
[2019-04-27 07:35] LABS: Influenza A - CEPHEID Flu A POSITIVE (NEGATIVE); Influenza B - CEPHEID Flu B NEGATIVE (NEGATIVE)
[2019-04-27 07:47] LABS: Procalcitonin 0.17 ng/mL (<0.5)
[2019-04-27 08:36] VITALS: BP 127/83; PULSE 91; RESP 23; O2SAT 95
--- NOTE | 2019-06-07 14:37 | PC.NURSE ---
Late entry: 04/27/19 NS 1 L bolus started 0730 discontinued @ 0830. 1000 cc in. No ill effect.
== END 2019-04-27 09:19 | disposition home or self-care (01) ==
PROVIDERS: Emergency Provider Emergency Medicine; PCP Family Medicine
DX: J10.1 Influenza due to other identified influenza virus with other respiratory manifestations (principal)
CPT/HCPCS: 36415; 71045; 80053; 83605; 83690; 84145; 85025; 87040; 87502; 96361; 96374; 99284; J2405

== ENCOUNTER → 2019-05-02 14:27 | Outpatient (CLI) | payer OTHER, SELFPAY | PROVIDERS: PCP Family Medicine; Visit Provider Physician Assistant | DX: R30.0 Dysuria (principal) | CPT/HCPCS: 87077; 87086; 87186 ==

== ENCOUNTER → 2019-09-08 11:36 | Outpatient (CLI) | payer OTHER, SELFPAY ==
[2019-09-08 11:52] LABS: Bacteria Urine None Seen
[2019-09-08 12:20] LABS: Appearance Urine UA CLEAR; Bilirubin Urine UA NEGATIVE (NEGATIVE); Color Urine UA YELLOW; Glucose Urine UA NEGATIVE (Negative); Ketones Urine UA NEGATIVE (NEGATIVE); Leukocyte Esterase Urine UA NEGATIVE (NEGATIVE); Nitrite Urine UA NEGATIVE (Negative); Occult Blood Urine UA 3+ (Negative); Protein Urine UA NEGATIVE (Negative); Specific Gravity Urine UA 1.015 (1.000-1.035); Urobilinogen Urine UA 0.2 E.U./dL (0.2)
[2019-09-08 12:27] LABS: Add Manual Diff / Slide Review NO; Basophils Absolute Auto 100 /uL (0-100); Basophils Percent Auto 0.6 % (0-2); Eosinophils Absolute Auto 300 /uL (0-450); Eosinophils Percent Auto 3.5 % (2-4); Hematocrit 42.1 % (36-46); Hemoglobin 14.4 g/dL (12.0-16.0); Lymphocytes Absolute Auto 3400 /uL (1100-4500); Lymphocytes Percent Auto 40.2 % (25-40); Mean Corpuscular HGB Conc 34.3 % (30-36); Mean Corpuscular Hemoglobin 27.1 PG (26-34); Monocytes Absolute Auto 400 /uL (0-900); Monocytes Percent Auto 5.3 % (3-14); Neutrophils Absolute Auto 4200 /uL (1500-7000); Neutrophils Percent Auto 50.4 % (50-75); Platelet Count 215 X10^3/uL (150-400); Red Blood Cell Count 5.32 X10^6/uL (4.0-5.2); Red Cell Distribution Width 15.1 % (11.6-14.8); White Blood Cell Count 8.3 X10^3/uL (4.5-11.0)
[2019-09-08 12:36] LABS: Amorphous Sediment Urine 1+; Culture Indicated Urine Cult Not Indicated; RBC Urine 10-30/HPF (0-5/HPF); WBC Urine 0-1/HPF (0-5/HPF)
[2019-09-08 12:39] LABS: Albumin 4.2 g/dL (3.5-5.0); BUN Creatinine Ratio 24.7 (6-22); Blood Urea Nitrogen 21 mg/dL (7-17); Calcium 9.5 mg/dL (8.4-10.2); Carbon Dioxide 21 mmol/L (22-32); Chloride 110 mmol/L (98-107); Estimated Glomerular Filt Rate > 60.0 mL/min (>60); Glucose 125 mg/dL (70-100); HEMOLYSIS 20 (0-50); Phosphorous 3.2 mg/dL (2.5-4.5); Potassium 4.4 mmol/L (3.4-5.1); Sodium 139 mmol/L (137-145)
[2019-09-08 13:04] LABS: Vitamin D 25 Hydroxy (D3) 33.4 ng/mL (30.0-100.0)
[2019-09-09 06:36] LABS: Calcium 9.1 mg/dL (8.7-10.2); Parathyroid Hormone, Intact 110 pg/mL (15-65)
[2019-09-09 09:36] LABS: SARS CoV19 IgG Negative (Negative)
== END ==
PROVIDERS: PCP Family Medicine; Referring Provider Internal Medicine Nephrology; Visit Provider Internal Medicine Nephrology
DX: Z94.0 Kidney transplant status (principal)
CPT/HCPCS: 36415; 80069; 80197; 81001; 82306; 82310; 83970; 85025; 86769

== ENCOUNTER → 2019-11-15 06:52 | Outpatient (CLI) | payer OTHER, SELFPAY ==
[2019-11-15 07:11] LABS: WBC Urine None Seen (0-5/HPF)
[2019-11-15 09:20] LABS: Add Manual Diff / Slide Review NO; Basophils Absolute Auto 0 /uL (0-100); Basophils Percent Auto 0.5 % (0-2); Eosinophils Absolute Auto 200 /uL (0-450); Eosinophils Percent Auto 3.1 % (2-4); Hematocrit 42.9 % (36-46); Hemoglobin 14.4 g/dL (12.0-16.0); Lymphocytes Absolute Auto 2300 /uL (1100-4500); Lymphocytes Percent Auto 32.9 % (25-40); Mean Corpuscular HGB Conc 33.5 % (30-36); Mean Corpuscular Hemoglobin 26.5 PG (26-34); Mean Corpuscular Volume 79.1 fL (80-100); Monocytes Absolute Auto 400 /uL (0-900); Monocytes Percent Auto 5.7 % (3-14); Neutrophils Absolute Auto 4100 /uL (1500-7000); Neutrophils Percent Auto 57.8 % (50-75); Platelet Count 225 X10^3/uL (150-400); Red Blood Cell Count 5.43 X10^6/uL (4.0-5.2); Red Cell Distribution Width 15.4 % (11.6-14.8); White Blood Cell Count 7.1 X10^3/uL (4.5-11.0)
[2019-11-15 09:52] LABS: Albumin 4.1 g/dL (3.5-5.0); BUN Creatinine Ratio 15.6 (6-22); Blood Urea Nitrogen 15 mg/dL (7-17); Calcium 9.4 mg/dL (8.4-10.2); Carbon Dioxide 21 mmol/L (22-32); Chloride 108 mmol/L (98-107); Estimated Glomerular Filt Rate 59.9 mL/min (>60); Glucose 94 mg/dL (70-100); HEMOLYSIS 19 (0-50); Phosphorous 3.1 mg/dL (2.5-4.5); Potassium 5.1 mmol/L (3.4-5.1); Sodium 138 mmol/L (137-145)
[2019-11-15 10:03] LABS: Vitamin D 25 Hydroxy (D3) 23.2 ng/mL (30.0-100.0)
[2019-11-15 10:24] LABS: Appearance Urine UA CLEAR; Bilirubin Urine UA NEGATIVE (NEGATIVE); Color Urine UA YELLOW; Glucose Urine UA NEGATIVE (Negative); Ketones Urine UA NEGATIVE (NEGATIVE); Leukocyte Esterase Urine UA NEGATIVE (NEGATIVE); Nitrite Urine UA NEGATIVE (Negative); Occult Blood Urine UA 3+ (Negative); Protein Urine UA NEGATIVE (Negative); Specific Gravity Urine UA 1.015 (1.000-1.035); Urobilinogen Urine UA 0.2 E.U./dL (0.2)
[2019-11-15 10:27] LABS: pH Urine UA 5.5 (4.5-8.0)
[2019-11-15 10:34] LABS: Bacteria Urine Occasional (0-1); Culture Indicated Urine Cult Not Indicated; RBC Urine 10-30/HPF (0-5/HPF); Squamous Epithelial Cell Urine 1-5 /HPF (0-5/HPF)
[2019-11-15 14:20] LABS: Alanine Aminotransferase 14 IU/L (<35); Albumin 4.1 g/dL (3.5-5.0); Albumin Globulin Ratio 1.1 (1.0-2.8); Alkaline Phosphatase 124 U/L (38-126); Aspartate Aminotransferase 27 IU/L (14-36); Bilirubin Total 0.7 mg/dL (0.2-1.3); Bilirubin Unconjugated 0.5 mg/dL (0.0-1.1); Cholesterol 209 mg/dL (140-199); Globulin 3.7 g/dL (1.7-4.1); HDL Cholesterol 38 mg/dL (40-60); HEMOLYSIS 18 (0-50); LDL Cholesterol Calculated 123 mg/dL (<100); Total Protein 7.8 g/dL (6.3-8.2); Triglycerides 242 mg/dL (35-150)
[2019-11-15 15:11] LABS: Creatinine Urine Random 83.7 mg/dL; Protein (Total) Urine Random 9 mg/dL (0-12)
[2019-11-16 07:11] LABS: Calcium 9.3 mg/dL (8.7-10.2); Parathyroid Hormone, Intact 69 pg/mL (15-65)
[2019-11-16 08:09] LABS: Tacrolimus 6.8 ng/mL (2.0-20.0)
== END ==
PROVIDERS: PCP Family Medicine; Referring Provider Internal Medicine Nephrology; Visit Provider Internal Medicine Nephrology
DX: Z94.0 Kidney transplant status (principal)
CPT/HCPCS: 36415; 80061; 80069; 80076; 80197; 81001; 82306; 82310; 82570; 83970; 84156; 85025

== ENCOUNTER → 2019-12-29 07:33 | Outpatient (CLI) | payer OTHER, SELFPAY ==
--- NOTE | 2019-12-29 07:35 | DI.US.S_ITS ---
PROCEDURE: US ABDOMEN COMPLETE INDICATIONS: abdominal pain r/o cholelithiasis TECHNIQUE: Real-time scanning was performed of the abdominal and retroperitoneal organs, with image documentation. COMPARISON: [facility], US, ABDOMEN COMPLETE, 10/05/2014, 8:25. FINDINGS: Liver: Liver is normal in size and homogeneous in echotexture. Gallbladder: There is no gallstone. No gallbladder wall thickening or pericholecystic fluid. No sonographic Ho sign. Biliary ducts: Intrahepatic bile ducts are non-dilated. Extrahepatic bile duct caliber measures 5.3 mm. Normal is 6-7 mm or less in diameter, or 10 mm or less post-cholecystectomy. Pancreas: Visualized portions of the pancreas are sonographically normal. Spleen: Spleen is normal in size and homogeneous in echotexture. Kidneys: Transplant kidney is seen in right lower quadrant abdomen with prior bilateral nephrectomy. Transplant kidney measures 11.5 centimeters in length.. No hydronephrosis or nephrolithiasis. No solid masses. Aorta: Visualized aorta is normal in caliber at less than 3 cm. Iliacs: Proximal common iliac arteries are normal in caliber at less than 2.5 cm. IVC: Intrahepatic inferior vena cava is patent. Miscellaneous: No free abdominal fluid. IMPRESSION: 1. Normal appearing gallbladder. No biliary ductal dilatation. 2. Prior bilateral nephrectomy with right-sided transplant kidney seen. No hydronephrosis or nephrolithiasis. Dictated by: Garry Chavez M.D. on 12/29/2019 at 9:16 Approved by: Garry Chavez M.D. on 12/29/2019 at 9:18
== END ==
PROVIDERS: PCP Family Medicine; Referring Provider Surgery; Visit Provider Surgery
DX: R10.9 Unspecified abdominal pain (principal); Z94.0 Kidney transplant status
CPT/HCPCS: 76700

== ENCOUNTER → 2020-04-26 08:52 | Outpatient (CLI) | payer OTHER, SELFPAY ==
[2020-04-26 09:33] LABS: Add Manual Diff / Slide Review NO; Basophils Absolute Auto 0 /uL (0-100); Basophils Percent Auto 0.5 % (0-2); Eosinophils Absolute Auto 100 /uL (0-450); Eosinophils Percent Auto 1.7 % (2-4); Hematocrit 39.3 % (36-46); Hemoglobin 13.3 g/dL (12.0-16.0); Lymphocytes Absolute Auto 2400 /uL (1100-4500); Lymphocytes Percent Auto 31.3 % (25-40); Mean Corpuscular HGB Conc 33.9 % (30-36); Mean Corpuscular Hemoglobin 27.2 PG (26-34); Mean Corpuscular Volume 80.2 fL (80-100); Monocytes Absolute Auto 400 /uL (0-900); Monocytes Percent Auto 5.4 % (3-14); Neutrophils Absolute Auto 4700 /uL (1500-7000); Neutrophils Percent Auto 61.1 % (50-75); Platelet Count 236 X10^3/uL (150-400); White Blood Cell Count 7.6 X10^3/uL (4.5-11.0)
[2020-04-26 09:34] LABS: Appearance Urine UA CLEAR; Bilirubin Urine UA NEGATIVE (NEGATIVE); Color Urine UA YELLOW; Glucose Urine UA NEGATIVE (Negative); Ketones Urine UA NEGATIVE (NEGATIVE); Leukocyte Esterase Urine UA NEGATIVE (NEGATIVE); Nitrite Urine UA NEGATIVE (Negative); Occult Blood Urine UA 3+ (Negative); Protein Urine UA NEGATIVE (Negative); Urobilinogen Urine UA 0.2 E.U./dL (0.2)
[2020-04-26 09:49] LABS: Albumin 3.9 g/dL (3.5-5.0); BUN Creatinine Ratio 16.5 (6-22); Blood Urea Nitrogen 16 mg/dL (7-17); Calcium 9.5 mg/dL (8.4-10.2); Carbon Dioxide 26 mmol/L (22-32); Chloride 108 mmol/L (98-107); Estimated Glomerular Filt Rate 59.2 mL/min (>60); Glucose 106 mg/dL (70-100); HEMOLYSIS < 15 (0-50); Phosphorous 2.8 mg/dL (2.5-4.5); Potassium 4.3 mmol/L (3.4-5.1); Sodium 139 mmol/L (137-145)
[2020-04-26 09:50] LABS: Bacteria Urine Few (2-10); Culture Indicated Urine Cult Not Indicated; RBC Urine 1-5/HPF (0-5/HPF); Squamous Epithelial Cell Urine 1-5 /HPF (0-5/HPF); WBC Urine 0-1/HPF (0-5/HPF)
[2020-04-26 10:50] LABS: Vitamin D 25 Hydroxy (D3) 38.1 ng/mL (30.0-100.0)
[2020-04-27 12:38] LABS: Tacrolimus 12.1 ng/mL (2.0-20.0)
[2020-04-27 15:58] LABS: Calcium 9.2 mg/dL (8.7-10.2); Parathyroid Hormone, Intact 97 pg/mL (15-65)
[2020-04-27 17:36] LABS: CMV DNA, Quant Real Time PCR Negative (Negative)
== END ==
PROVIDERS: PCP Family Medicine; Referring Provider Family Medicine; Visit Provider Internal Medicine Nephrology
DX: Z94.0 Kidney transplant status (principal); E55.9 Vitamin D deficiency, unspecified; B25.9 Cytomegaloviral disease, unspecified
CPT/HCPCS: 36415; 80069; 80197; 81001; 82306; 82310; 83970; 85025; 87497

== ENCOUNTER → 2020-10-19 17:18 | Outpatient (CLI) | payer OTHER, SELFPAY ==
[2020-10-19 18:15] LABS: Appearance Urine UA CLEAR; Bilirubin Urine UA NEGATIVE (NEGATIVE); Color Urine UA YELLOW; Glucose Urine UA NEGATIVE (Negative); Ketones Urine UA NEGATIVE (NEGATIVE); Leukocyte Esterase Urine UA NEGATIVE (NEGATIVE); Nitrite Urine UA NEGATIVE (Negative); Occult Blood Urine UA 3+ (Negative); Protein Urine UA NEGATIVE (Negative); Urobilinogen Urine UA 0.2 E.U./dL (0.2)
[2020-10-19 18:16] LABS: Add Manual Diff / Slide Review NO; Basophils Absolute Auto 0 /uL (0-100); Basophils Percent Auto 0.4 % (0-2); Eosinophils Absolute Auto 200 /uL (0-450); Eosinophils Percent Auto 1.5 % (2-4); Hematocrit 41.1 % (36-46); Hemoglobin 13.6 g/dL (12.0-16.0); Lymphocytes Absolute Auto 3200 /uL (1100-4500); Lymphocytes Percent Auto 30.2 % (25-40); Mean Corpuscular HGB Conc 33.1 % (30-36); Mean Corpuscular Hemoglobin 26.4 PG (26-34); Mean Corpuscular Volume 79.6 fL (80-100); Monocytes Absolute Auto 600 /uL (0-900); Monocytes Percent Auto 5.9 % (3-14); Neutrophils Absolute Auto 6500 /uL (1500-7000); Platelet Count 250 X10^3/uL (150-400); Red Blood Cell Count 5.17 X10^6/uL (4.0-5.2); Red Cell Distribution Width 14.9 % (11.6-14.8); White Blood Cell Count 10.5 X10^3/uL (4.5-11.0)
[2020-10-19 18:18] LABS: Albumin 4.1 g/dL (3.5-5.0); BUN Creatinine Ratio 20.2 (6-22); Blood Urea Nitrogen 19 mg/dL (7-17); Calcium 9.4 mg/dL (8.4-10.2); Carbon Dioxide 20 mmol/L (22-32); Chloride 108 mmol/L (98-107); Estimated Glomerular Filt Rate > 60.0 mL/min (>60); Glucose 118 mg/dL (70-100); HEMOLYSIS < 15 (0-50); Phosphorous 2.7 mg/dL (2.5-4.5); Potassium 4.1 mmol/L (3.4-5.1); Sodium 137 mmol/L (137-145)
[2020-10-19 18:35] LABS: Vitamin D 25 Hydroxy (D3) 45.3 ng/mL (30.0-100.0)
[2020-10-19 19:25] LABS: Bacteria Urine Occasional (0-1); Culture Indicated Urine Cult Not Indicated; RBC Urine 1-5/HPF (0-5/HPF); Squamous Epithelial Cell Urine 0-1 /HPF (0-5/HPF); WBC Urine 0-1/HPF (0-5/HPF)
[2020-10-20 11:21] LABS: Parathyroid Hormone Int 102 pg/mL (15-65); Tacrolimus 4.1 ng/mL (2.0-20.0)
[2020-10-20 15:02] LABS: CMV DNA, Quant Real Time PCR Negative (Negative)
== END ==
PROVIDERS: PCP Family Medicine; Referring Provider Internal Medicine Nephrology; Visit Provider Internal Medicine Nephrology
DX: B25.9 Cytomegaloviral disease, unspecified (principal); E55.9 Vitamin D deficiency, unspecified; Z94.0 Kidney transplant status
CPT/HCPCS: 36415; 80069; 80197; 81001; 82306; 83970; 85025; 87497

== ENCOUNTER → 2021-03-01 08:07 | Outpatient (CLI) | payer OTHER, SELFPAY ==
[2021-03-01 08:44] LABS: Appearance Urine UA CLEAR; Bilirubin Urine UA NEGATIVE (NEGATIVE); Color Urine UA YELLOW; Glucose Urine UA NEGATIVE (Negative); Ketones Urine UA NEGATIVE (NEGATIVE); Leukocyte Esterase Urine UA NEGATIVE (NEGATIVE); Nitrite Urine UA NEGATIVE (Negative); Occult Blood Urine UA 3+ (Negative); Protein Urine UA NEGATIVE (Negative); Urobilinogen Urine UA 0.2 E.U./dL (0.2)
[2021-03-01 08:51] LABS: Amorphous Sediment Urine 1+; Bacteria Urine None Seen; RBC Urine 0-1/HPF (0-5/HPF); Squamous Epithelial Cell Urine 0-1 /HPF (0-5/HPF); WBC Urine 0-1/HPF (0-5/HPF); pH Urine UA 6.5 (4.5-8.0)
[2021-03-01 08:52] LABS: Culture Indicated Urine Cult Not Indicated
[2021-03-01 09:23] LABS: Alanine Aminotransferase 17 IU/L (<35); Albumin 4.1 g/dL (3.5-5.0); Albumin Globulin Ratio 1.2 (1.0-2.8); Alkaline Phosphatase 104 U/L (38-126); Aspartate Aminotransferase 29 IU/L (14-36); BUN Creatinine Ratio 18.1 (6-22); Bilirubin Total 0.8 mg/dL (0.2-1.3); Bilirubin Unconjugated 0.8 mg/dL (0.0-1.1); Blood Urea Nitrogen 19 mg/dL (7-17); Calcium 9.8 mg/dL (8.4-10.2); Carbon Dioxide 25 mmol/L (22-32); Chloride 103 mmol/L (98-107); Cholesterol 209 mg/dL (140-199); Estimated Glomerular Filt Rate 53.8 mL/min (>60); Globulin 3.4 g/dL (1.7-4.1); Glucose 110 mg/dL (70-100); HDL Cholesterol 47 mg/dL (40-60); HEMOLYSIS < 15 (0-50); LDL Cholesterol Calculated 116 mg/dL (<100); Phosphorous 3.6 mg/dL (2.5-4.5); Potassium 4.2 mmol/L (3.4-5.1); Sodium 139 mmol/L (137-145); Total Protein 7.5 g/dL (6.3-8.2); Triglycerides 228 mg/dL (35-150)
[2021-03-01 11:31] LABS: Vitamin D 25 Hydroxy (D3) 41.1 ng/mL (30.0-100.0)
[2021-03-02 08:36] LABS: Calcium 9.4 mg/dL (8.7-10.2); Parathyroid Hormone, Intact 69 pg/mL (15-65)
[2021-03-02 15:11] LABS: CMV DNA, Quant Real Time PCR Negative (Negative)
== END ==
PROVIDERS: Referring Provider Internal Medicine Nephrology; Visit Provider Internal Medicine Nephrology
DX: Z94.0 Kidney transplant status (principal)
CPT/HCPCS: 36415; 80061; 80069; 80076; 80197; 81001; 82306; 82310; 83970; 87497

== ENCOUNTER → 2021-05-30 09:55 | Outpatient (CLI) | payer OTHER, SELFPAY ==
[2021-05-30 10:44] LABS: Add Manual Diff / Slide Review NO; Basophils Absolute Auto 0 /uL (0-100); Basophils Percent Auto 0.6 % (0-2); Eosinophils Absolute Auto 100 /uL (0-450); Hematocrit 42.5 % (36-46); Hemoglobin 13.7 g/dL (12.0-16.0); Lymphocytes Absolute Auto 2700 /uL (1100-4500); Lymphocytes Percent Auto 36.7 % (25-40); Mean Corpuscular HGB Conc 32.3 % (30-36); Mean Corpuscular Hemoglobin 25.8 PG (26-34); Mean Corpuscular Volume 79.8 fL (80-100); Monocytes Absolute Auto 500 /uL (0-900); Monocytes Percent Auto 6.1 % (3-14); Neutrophils Absolute Auto 4000 /uL (1500-7000); Neutrophils Percent Auto 54.6 % (50-75); Platelet Count 239 X10^3/uL (150-400); Red Blood Cell Count 5.33 X10^6/uL (4.0-5.2); Red Cell Distribution Width 14.8 % (11.6-14.8); White Blood Cell Count 7.4 X10^3/uL (4.5-11.0)
[2021-05-30 11:13] LABS: Appearance Urine UA CLEAR; Bilirubin Urine UA NEGATIVE (NEGATIVE); Color Urine UA YELLOW; Glucose Urine UA NEGATIVE (Negative); Ketones Urine UA NEGATIVE (NEGATIVE); Leukocyte Esterase Urine UA NEGATIVE (NEGATIVE); Nitrite Urine UA NEGATIVE (Negative); Occult Blood Urine UA 3+ (Negative); Protein Urine UA NEGATIVE (Negative); Urobilinogen Urine UA 0.2 E.U./dL (0.2)
[2021-05-30 11:28] LABS: Alanine Aminotransferase 14 IU/L (<35); Albumin 4.1 g/dL (3.5-5.0); Albumin Globulin Ratio 1.1 (1.0-2.8); Alkaline Phosphatase 102 U/L (38-126); Aspartate Aminotransferase 27 IU/L (14-36); BUN Creatinine Ratio 20.2 (6-22); Bilirubin Total 0.4 mg/dL (0.2-1.3); Bilirubin Unconjugated 0.4 mg/dL (0.0-1.1); Blood Urea Nitrogen 18 mg/dL (7-17); Calcium 9.3 mg/dL (8.4-10.2); Carbon Dioxide 25 mmol/L (22-32); Chloride 108 mmol/L (98-107); Cholesterol 193 mg/dL (140-199); Estimated Glomerular Filt Rate > 60.0 mL/min (>60); Globulin 3.7 g/dL (1.7-4.1); Glucose 97 mg/dL (70-100); HDL Cholesterol 47 mg/dL (40-60); HEMOLYSIS < 15 (0-50); LDL Cholesterol Calculated 103 mg/dL (<100); Phosphorous 3.5 mg/dL (2.5-4.5); Potassium 4.6 mmol/L (3.4-5.1); Sodium 139 mmol/L (137-145); Total Protein 7.8 g/dL (6.3-8.2); Triglycerides 213 mg/dL (35-150)
[2021-05-30 11:36] LABS: Bacteria Urine Few (2-10); Culture Indicated Urine Cult Not Indicated; RBC Urine 5-10/HPF (0-5/HPF); Squamous Epithelial Cell Urine 1-5 /HPF (0-5/HPF); WBC Urine 0-1/HPF (0-5/HPF)
[2021-05-30 12:29] LABS: Vitamin D 25 Hydroxy (D3) 41.1 ng/mL (30.0-100.0)
[2021-05-31 06:23] LABS: Tacrolimus 3.7 ng/mL (2.0-20.0)
[2021-05-31 08:53] LABS: Parathyroid Hormone Int 87 pg/mL (15-65)
== END ==
PROVIDERS: Referring Provider Internal Medicine Nephrology; Visit Provider Internal Medicine Nephrology
DX: Z94.0 Kidney transplant status (principal); E78.5 Hyperlipidemia, unspecified; N25.81 Secondary hyperparathyroidism of renal origin
CPT/HCPCS: 36415; 80061; 80069; 80076; 80197; 81001; 82306; 83970; 85025

== ENCOUNTER → 2021-09-25 08:59 | Outpatient (CLI) | payer OTHER, SELFPAY ==
[2021-09-25 10:05] LABS: Add Manual Diff / Slide Review NO; Basophils Absolute Auto 100 /uL (0-100); Basophils Percent Auto 0.8 % (0-2); Eosinophils Absolute Auto 200 /uL (0-450); Eosinophils Percent Auto 2.9 % (2-4); Hematocrit 40.8 % (36-46); Hemoglobin 13.6 g/dL (12.0-16.0); Lymphocytes Absolute Auto 2400 /uL (1100-4500); Lymphocytes Percent Auto 34.6 % (25-40); Mean Corpuscular HGB Conc 33.4 % (30-36); Mean Corpuscular Hemoglobin 26.5 PG (26-34); Mean Corpuscular Volume 79.4 fL (80-100); Monocytes Absolute Auto 400 /uL (0-900); Monocytes Percent Auto 6.2 % (3-14); Neutrophils Absolute Auto 3800 /uL (1500-7000); Neutrophils Percent Auto 55.5 % (50-75); Platelet Count 205 X10^3/uL (150-400); Red Blood Cell Count 5.14 X10^6/uL (4.0-5.2); Red Cell Distribution Width 15.3 % (11.6-14.8); White Blood Cell Count 6.8 X10^3/uL (4.5-11.0)
[2021-09-25 10:14] LABS: Alanine Aminotransferase 14 IU/L (<35); Albumin 4.2 g/dL (3.5-5.0); Albumin Globulin Ratio 1.2 (1.0-2.8); Alkaline Phosphatase 94 U/L (38-126); Aspartate Aminotransferase 25 IU/L (14-36); BUN Creatinine Ratio 18.3 (6-22); Bilirubin Total 0.4 mg/dL (0.2-1.3); Bilirubin Unconjugated 0.4 mg/dL (0.0-1.1); Blood Urea Nitrogen 17 mg/dL (7-17); Carbon Dioxide 24 mmol/L (22-32); Chloride 108 mmol/L (98-107); Cholesterol 203 mg/dL (140-199); Estimated Glomerular Filt Rate > 60 mL/min (>60); Globulin 3.5 g/dL (1.7-4.1); Glucose 101 mg/dL (70-100); HDL Cholesterol 40 mg/dL (40-60); HEMOLYSIS < 15 (0-50); LDL Cholesterol Calculated 122 mg/dL (<100); Phosphorous 2.8 mg/dL (2.5-4.5); Potassium 4.4 mmol/L (3.4-5.1); Sodium 138 mmol/L (137-145); Total Protein 7.7 g/dL (6.3-8.2); Triglycerides 206 mg/dL (35-150)
[2021-09-25 10:17] LABS: Appearance Urine UA CLEAR; Bilirubin Urine UA NEGATIVE (NEGATIVE); Color Urine UA YELLOW; Glucose Urine UA NEGATIVE (Negative); Ketones Urine UA NEGATIVE (NEGATIVE); Leukocyte Esterase Urine UA NEGATIVE (NEGATIVE); Nitrite Urine UA NEGATIVE (Negative); Occult Blood Urine UA 3+ (Negative); Protein Urine UA NEGATIVE (Negative); Urobilinogen Urine UA 0.2 E.U./dL (0.2)
[2021-09-25 10:19] LABS: pH Urine UA 6.5 (4.5-8.0)
[2021-09-25 10:23] LABS: Bacteria Urine None Seen; Culture Indicated Urine Cult Not Indicated; RBC Urine None Seen (0-5/HPF); WBC Urine None Seen (0-5/HPF)
[2021-09-25 10:48] LABS: Vitamin D 25 Hydroxy (D3) 44.1 ng/mL (30.0-100.0)
[2021-09-26 08:06] LABS: Tacrolimus 6.4 ng/mL (2.0-20.0)
[2021-09-26 14:06] LABS: Calcium 9.4 mg/dL (8.7-10.2); Parathyroid Hormone, Intact 62 pg/mL (15-65)
== END ==
PROVIDERS: Referring Provider Internal Medicine Nephrology; Visit Provider Internal Medicine Nephrology
DX: Z94.0 Kidney transplant status (principal); E78.5 Hyperlipidemia, unspecified; N25.81 Secondary hyperparathyroidism of renal origin
CPT/HCPCS: 36415; 80061; 80069; 80076; 80197; 81001; 82306; 82310; 83970; 85025

== ENCOUNTER → 2022-04-26 09:14 | Outpatient (CLI) | payer OTHER, SELFPAY ==
[2022-04-26 09:38] LABS: Appearance Urine UA CLEAR; Bilirubin Urine UA NEGATIVE (NEGATIVE); Color Urine UA YELLOW; Glucose Urine UA NEGATIVE (Negative); Ketones Urine UA NEGATIVE (NEGATIVE); Leukocyte Esterase Urine UA NEGATIVE (NEGATIVE); Nitrite Urine UA NEGATIVE (Negative); Occult Blood Urine UA 2+ (Negative); Protein Urine UA NEGATIVE (Negative); Urobilinogen Urine UA 0.2 E.U./dL (0.2)
[2022-04-26 09:46] LABS: Amorphous Sediment Urine 1+; Bacteria Urine None Seen; Culture Indicated Urine Cult Not Indicated; RBC Urine 1-5/HPF (0-5/HPF); WBC Urine None Seen (0-5/HPF)
[2022-04-26 10:23] LABS: Add Manual Diff / Slide Review NO; Basophils Absolute Auto 0 /uL (0-100); Basophils Percent Auto 0.6 % (0-2); Eosinophils Absolute Auto 200 /uL (0-450); Eosinophils Percent Auto 2.4 % (2-4); Hematocrit 44.4 % (36-46); Hemoglobin 14.8 g/dL (12.0-16.0); Lymphocytes Absolute Auto 2600 /uL (1100-4500); Lymphocytes Percent Auto 33.4 % (25-40); Mean Corpuscular HGB Conc 33.3 % (30-36); Mean Corpuscular Hemoglobin 26.2 PG (26-34); Mean Corpuscular Volume 78.6 fL (80-100); Monocytes Absolute Auto 400 /uL (0-900); Monocytes Percent Auto 4.9 % (3-14); Neutrophils Absolute Auto 4600 /uL (1500-7000); Neutrophils Percent Auto 58.7 % (50-75); Platelet Count 247 X10^3/uL (150-400); Red Blood Cell Count 5.65 X10^6/uL (4.0-5.2); Red Cell Distribution Width 14.6 % (11.6-14.8); White Blood Cell Count 7.9 X10^3/uL (4.5-11.0)
[2022-04-26 10:25] LABS: Albumin 4.4 g/dL (3.5-5.0); BUN Creatinine Ratio 22.9 (6-22); Blood Urea Nitrogen 22 mg/dL (7-17); Calcium 9.6 mg/dL (8.4-10.2); Carbon Dioxide 21 mmol/L (22-32); Chloride 105 mmol/L (98-107); Cholesterol 231 mg/dL (140-199); Estimated Glomerular Filt Rate > 60 mL/min (>60); Glucose 108 mg/dL (70-100); HDL Cholesterol 49 mg/dL (40-60); HEMOLYSIS < 15 (0-50); LDL Cholesterol Calculated 134 mg/dL (<100); Phosphorous 3.1 mg/dL (2.5-4.5); Potassium 4.8 mmol/L (3.4-5.1); Sodium 138 mmol/L (137-145); Triglycerides 241 mg/dL (35-150)
[2022-04-27 07:14] LABS: Tacrolimus 9.3 ng/mL (2.0-20.0)
[2022-04-29 07:08] LABS: Calcium 9.9 mg/dL (8.7-10.2); Parathyroid Hormone, Intact 86 pg/mL (15-65)
== END ==
PROVIDERS: Referring Provider Internal Medicine Nephrology; Visit Provider Internal Medicine Nephrology
DX: Z94.0 Kidney transplant status (principal)
CPT/HCPCS: 36415; 80061; 80069; 80197; 81001; 82306; 82310; 83970; 85025

== ENCOUNTER → 2022-12-05 07:43 | Outpatient (CLI) | payer OTHER, SELFPAY ==
[2022-12-05 09:03] LABS: Add Manual Diff / Slide Review NO; Basophils Absolute Auto 100 /uL (0-100); Basophils Percent Auto 0.7 % (0-2); Eosinophils Absolute Auto 100 /uL (0-450); Eosinophils Percent Auto 1.8 % (2-4); Hematocrit 44.9 % (36-46); Lymphocytes Absolute Auto 2100 /uL (1100-4500); Lymphocytes Percent Auto 29.6 % (25-40); Mean Corpuscular HGB Conc 33.3 % (30-36); Mean Corpuscular Hemoglobin 25.9 PG (26-34); Mean Corpuscular Volume 77.7 fL (80-100); Monocytes Absolute Auto 400 /uL (0-900); Monocytes Percent Auto 5.9 % (3-14); Neutrophils Absolute Auto 4300 /uL (1500-7000); Platelet Count 214 X10^3/uL (150-400); Red Blood Cell Count 5.77 X10^6/uL (4.0-5.2); Red Cell Distribution Width 14.7 % (11.6-14.8)
[2022-12-05 09:10] LABS: Albumin 4.2 g/dL (3.5-5.0); BUN Creatinine Ratio 20.9 (6-22); Blood Urea Nitrogen 19 mg/dL (7-17); Calcium 9.6 mg/dL (8.4-10.2); Carbon Dioxide 22 mmol/L (22-32); Chloride 106 mmol/L (98-107); Estimated Glomerular Filt Rate > 60 mL/min (>60); Glucose 102 mg/dL (80-110); HEMOLYSIS < 15 (0-50); Phosphorous 2.8 mg/dL (2.8-4.1); Potassium 4.3 mmol/L (3.4-5.1); Sodium 139 mmol/L (137-145)
[2022-12-05 09:21] LABS: Appearance Urine UA CLEAR; Bilirubin Urine UA NEGATIVE (NEGATIVE); Color Urine UA YELLOW; Glucose Urine UA NEGATIVE (Negative); Ketones Urine UA NEGATIVE (NEGATIVE); Leukocyte Esterase Urine UA NEGATIVE (NEGATIVE); Nitrite Urine UA NEGATIVE (Negative); Occult Blood Urine UA 1+ (Negative); Protein Urine UA NEGATIVE (Negative); Specific Gravity Urine UA <=1.005 (1.000-1.035); Urobilinogen Urine UA 0.2 E.U./dL (0.2)
[2022-12-05 09:25] LABS: pH Urine UA 5.5 (4.5-8.0)
[2022-12-05 09:31] LABS: Bacteria Urine Occasional (0-1); Culture Indicated Urine Cult Not Indicated; RBC Urine 1-5/HPF (0-5/HPF); Squamous Epithelial Cell Urine 0-1 /HPF (0-5/HPF); WBC Urine 0-1/HPF (0-5/HPF)
[2022-12-10 11:42] LABS: Tacrolimus 5.7
== END ==
PROVIDERS: Referring Provider Internal Medicine Nephrology; Visit Provider Internal Medicine Nephrology
DX: Z94.0 Kidney transplant status (principal)
CPT/HCPCS: 36415; 80069; 80197; 81001; 85025

== ENCOUNTER → 2023-04-07 17:11 | Outpatient (CLI) | payer OTHER, SELFPAY ==
--- NOTE | 2023-04-07 | DI.MG.S_ITS ---
BILATERAL DIGITAL SCREENING MAMMOGRAM 3D/2D WITH CAD: 04/07/2023 CLINICAL: Routine screening. Family history of breast cancer. Comparison is made to exams dated: 06/07/2020 mammogram - [facility] [place], 08/04/2016 mammogram - [facility], and 05/18/2009 mammogram - [facility] [place]. Both breasts are almost entirely fatty (category a/<25% glandular tissue). Current study was also evaluated with a Computer Aided Detection (CAD) system. There is architectural distortion with amorphous heterogeneous calcifications in the left breast at 1 o'clock anterior depth. No other significant masses, calcifications, or other findings are seen in either breast. IMPRESSION: INCOMPLETE: NEEDS ADDITIONAL IMAGING EVALUATION The architectural distortion in the left breast is indeterminate. Additional views with possible ultrasound are recommended. Based on Tyrer-Cuzick model (a risk assessment model), the patient's lifetime risk is 20.3% and her 10 year risk is 8.6%. If a patient has an elevated risk, a more comprehensive evaluation should be considered and/or a referral to a genetic counselor. The [place] [employer], [employer], and NCCN Guidelines advise the consideration of Breast MRI as an adjunct to screening mammography in patients whose Lifetime risk to develop breast cancer is 20% or higher. This exam was interpreted at Station ID: [id number]. NOTE: For mammograms, a report in lay terms will be sent to the patient. Approximately 15% of breast malignancies will not be visualized mammographically. In the management of a palpable breast mass, a negative mammogram must not discourage biopsy of a clinically suspicious lesion. Electronically Signed By: Lenka estes/:04/08/2023 12:07:25 copy to: LEEANNA HOOD, [facility], ph: [phone], fax: [phone] letter sent: Additional Imaging Needed ACR BI-RADS Category 0: Incomplete 3340F
== END ==
LOC: MAMMO 17:12
PROVIDERS: Referring Provider Nurse Practitioner; Visit Provider Nurse Practitioner
DX: Z12.31 Encounter for screening mammogram for malignant neoplasm of breast (principal); Z80.3 Family history of malignant neoplasm of breast
CPT/HCPCS: 77063; 77067

== ENCOUNTER → 2023-04-23 08:52 | Outpatient (CLI) | payer OTHER, SELFPAY ==
--- NOTE | 2023-04-23 08:53 | DI.MG.S_ITS ---
UNILATERAL LEFT DIGITAL DIAGNOSTIC MAMMOGRAM 3D/2D WITH ADDITIONAL VIEWS: 04/23/2023 CLINICAL: Additional evaluation requested from prior study. Comparison is made to exams dated: 04/07/2023 mammogram - [facility], 06/07/2020 mammogram - [facility], and 08/04/2016 mammogram - [facility]. There are scattered areas of fibroglandular density in the left breast (category b / 25%-50% glandular tissue). There is architectural distortion with coarse heterogeneous calcifications in the left breast at 12 o'clock anterior depth. This is increased in number of calcifications. No other significant masses or calcifications are seen in the breast. IMPRESSION: INCOMPLETE: NEEDS ADDITIONAL IMAGING EVALUATION The architectural distortion in the left breast is indeterminate. An ultrasound is recommended. Based on Tyrer-Cuzick model (a risk assessment model), the patient's lifetime risk is 29.2% and her 10 year risk is 12.8%. If a patient has an elevated risk, a more comprehensive evaluation should be considered and/or a referral to a genetic counselor. The [place] [employer], [employer], and NCCN Guidelines advise the consideration of Breast MRI as an adjunct to screening mammography in patients whose Lifetime risk to develop breast cancer is 20% or higher. This exam was interpreted at Station ID: [id number]. NOTE: For mammograms, a report in lay terms will be sent to the patient. Approximately 15% of breast malignancies will not be visualized mammographically. In the management of a palpable breast mass, a negative mammogram must not discourage biopsy of a clinically suspicious lesion. Electronically Signed By: Francis Quinones M.D. lc/:04/23/2023 09:55:37 copy to: LEEANNA HOOD, [facility], ph: [phone], fax: [phone] ACR BI-RADS Category 0: Incomplete [id number]
--- NOTE | 2023-04-23 08:53 | DI.US.S_ITS ---
LIMITED ULTRASOUND OF LEFT BREAST: 04/23/2023 CLINICAL: Patient returns today to evaluate a focal asymmetry in the left breast. Comparison is made to exams dated: 04/23/2023 mammogram, 04/07/2023 mammogram - [facility], 06/07/2020 mammogram, 10/03/2016 mammogram, 10/03/2016 ultrasound biopsy, and 09/10/2016 ultrasound - [facility]. Color flow and real-time ultrasound of the left breast 1 o'clock region were performed. Almanzar scale images of the real-time examination were reviewed. Shadowing is seen in 1:00 4cm from the nipple, with possible calcifications, possibly corresponding to the mammographic abnormality. IMPRESSION: SUSPICIOUS OF MALIGNANCY Shadowing is seen in 1:00 4cm from the nipple, with possible calcifications, possibly corresponding to the mammographic abnormality. No clear mass however on cines. Stereotactic biopsy is recommended for the mammography finding which is suspicious for malignancy. The distortion appears stable from prior imaging, but the calcifications are increased. This exam was interpreted at Station ID: [id number]. Electronically Signed By: Francis Quinones M.D. lc/:04/23/2023 09:57:39 copy to: LEEANNA HOOD, [facility], ph: [phone], fax: [phone] letter sent: Biopsy Required Ultrasound BI-RADS: 4 Suspicious for malignancy
== END ==
LOC: MAMMO 08:52
PROVIDERS: Referring Provider Nurse Practitioner; Visit Provider Nurse Practitioner
DX: R92.8 Other abnormal and inconclusive findings on diagnostic imaging of breast (principal); N64.89 Other specified disorders of breast; R92.322 Mammographic fibroglandular density, left breast
CPT/HCPCS: 76642; 77065; G0279

== ENCOUNTER → 2023-08-20 08:41 | Outpatient (CLI) | payer OTHER, SELFPAY ==
[2023-08-20 10:12] LABS: COVID-19 CEPHEID 4-PLEX PCR Negative (Negative); Influenza A - CEPHEID Flu A NEGATIVE (NEGATIVE); Influenza B - CEPHEID Flu B NEGATIVE (NEGATIVE); Respiratory Syncytial Virus Negative (Negative)
== END ==
PROVIDERS: PCP Family Medicine; Visit Provider Nurse Practitioner Family
DX: R05.1 Acute cough (principal)
CPT/HCPCS: 0241U

== ENCOUNTER → 2023-08-20 09:02 | Outpatient (CLI) | payer OTHER, SELFPAY ==
--- NOTE | 2023-08-20 09:03 | DI.RAD.S_ITS ---
PROCEDURE: XR CHEST 2V INDICATIONS: Cough TECHNIQUE: 2 views of the chest were acquired. COMPARISON: [facility], CR, XR CHEST 1V, 04/27/2019, 7:17. FINDINGS: Surgical changes and devices: None. Lungs and pleura: Lungs are clear. No pleural effusions or pneumothorax. Mediastinum: Mediastinal contours are normal. Heart size is normal. Bones and chest wall: No suspicious bony abnormalities. Soft tissues appear unremarkable. IMPRESSION: No acute cardiopulmonary abnormality is seen. Dictated by: Shady Jacobs M.D. on 08/20/2023 at 10:21 Approved by: Shady Jacobs M.D. on 08/20/2023 at 10:22
== END ==
LOC: RAD 09:03
PROVIDERS: PCP Family Medicine; Referring Provider Nurse Practitioner Family; Visit Provider Nurse Practitioner Family
DX: R05.1 Acute cough (principal)
CPT/HCPCS: 0241U; 71046

== ENCOUNTER → 2023-08-28 06:48 | Outpatient (CLI) | payer OTHER, SELFPAY ==
--- NOTE | 2023-08-28 06:50 | DI.US.S_ITS ---
PROCEDURE: US RENAL COMPLETE INDICATIONS: MICROSCOPIC HEMATURIA,HX BLADDER MASS TECHNIQUE: Real-time scanning was performed of the kidneys and bladder, with image documentation. COMPARISON: None. FINDINGS: Right lower quadrant kidney transplant: Normal in size, measuring 11.2 centimeters. No hydronephrosis. Cortex measures 1 centimeters. Elevated velocities in the proximal anastomosis of the renal artery, measuring 227 centimeters/second, distally measuring 84 centimeters/second. The inflow in the right common iliac artery measures 153 centimeters/second. Bladder: Pre-void bladder volume is 121 mL. Post-void residual is 26 mL. Pre-void images demonstrate no intraluminal masses or stones. Ureteral jet not visualized. Miscellaneous: No free pelvic fluid. IMPRESSION: Right lower quadrant kidney transplant demonstrates increased velocities at the arterial anastomosis, measuring 227 centimeters/second, indicating stenosis. No sonographic evidence of nephrolithiasis. Dictated by: Usama Reilly M.D. on 08/28/2023 at 9:56 Approved by: Usama Reilly M.D. on 08/28/2023 at 10:09
== END ==
LOC: US 06:50
PROVIDERS: PCP Family Medicine; Referring Provider Internal Medicine Nephrology; Visit Provider Internal Medicine Nephrology
DX: R31.29 Other microscopic hematuria (principal); T86.19 Other complication of kidney transplant; D41.4 Neoplasm of uncertain behavior of bladder
CPT/HCPCS: 76770

== ENCOUNTER 2024-01-22 20:49 | Emergency (ER) | payer OTHER, SELFPAY ==
--- NOTE | 2024-01-22 20:54 | ED.GENADULT ---
HPI - General Adult General Chief complaint: Eye Problems Stated complaint: Infection in eyes Time Seen by Provider: 01/22/24 20:53 History of Present Illness HPI narrative: 63-year-old female with 2 weeks' duration bilateral eye pain and discharge. Seen in walk-in clinic, was started initially on polymyxin eyedrops, which were stopped due to stinging sensation. She was changed to topical erythromycin ophthalmic ointment, was improving, now increasing in her symptoms. History of allergies, taking oral antihistamines. No hives or itching. No swelling to tongue or lips. No wheeze or shortness of breath or chest pain. Related Data Home Medications Medication Instructions Recorded Confirmed tacrolimus 1 mg capsule, mg PO ##0 10/17/11 01/20/24 immediate-release (Prograf) citalopram 10 mg tablet mg PO 05/12/23 09/04/23 lisinopril 10 mg tablet mg PO 05/12/23 09/04/23 mycophenolate mofetil 250 mg 500 mg PO BID 05/12/23 09/04/23 capsule progesterone micronized 200 mg 200 mg PO ONCE PM 05/12/23 09/04/23 capsule ipratropium bromide 42 mcg (0.06 intranasal 01/20/24 01/20/24 %) nasal spray Previous Rx's Medication Instructions Recorded amoxicillin 875 mg-potassium 1 tab PO BID #14 tabs 09/04/23 clavulanate 125 mg tablet codeine 10 mg-guaifenesin 100 mg/5 10 ml PO Q4-6H PRN cough #118 mL 09/04/23 mL oral liquid polymyxin B sulfate 10,000 2 drp EYE-BOTH QID #10 mL 01/20/24 unit-trimethoprim 1 mg/mL eye drops erythromycin 5 mg/gram (0.5 %) eye 0.5 inch EYE-BOTH Q4H 5 days #3.5 01/21/24 ointment grams tobramycin-dexamethasone 0.3 %-0.1 1 applic EYE-BOTH QID 7 days #3.5 01/22/24 % eye ointment (TobraDex) grams Allergies Allergy/AdvReac Type Severity Reaction Status Date / Time latex [LATEX] Allergy Unknown Verified 09/04/23 16:28 NSAIDS (Non-Steroidal Allergy Unknown UNKNOWN - Verified 09/04/23 16:28 Anti-Inflamma HAS KIDNEY TRANSPLANT TAPE Allergy Mild RASH Uncoded 09/04/23 16:28 Review of Systems Review of Systems Narrative: see HPI Patient History Medical History (Updated 01/22/24 @ 22:19 by Morgan Ayala MD) Menopause Hypothyroidism (10/14/12) Complications of transplanted kidney Abdominal pain Sinusitis UTI (urinary tract infection) Surgical History (Updated 04/20/23 @ 10:21 by Mercy Beckman MD) History of bladder surgery History of laparoscopy History of laparoscopic cholecystectomy Renal transplant, status post Status post delivery Status post delivery Family History (Updated 09/13/19 @ 14:04 by Carrie Madera CMA) Mother Age: 83 Uncomplicated asthma, unspecified asthma severity Hypertension Family/Other Depression Bipolar disorder Alcohol abuse Substance abuse Social History Smoking Status: Never smoker Smoking Status: Never smoker alcohol intake frequency: 0-2 drinks per day Substance Use Type: does not use Exam Narrative Exam Narrative: GENERAL: Well-developed patient, in mild distress. HEAD: Atraumatic. Normocephalic. EYES: Pupils equal round and reactive. Extraocular motions intact. No scleral icterus. Scleral injection bilaterally. Proparacaine then fluorescein examination with Wood's lamp to both eyes, mucous flecks noted, no other obvious foreign body, corneal abrasions, no dendritic changes to the cornea. No obvious layering anterior chambers. Mucus strands discharge noted. ENT: Nose without bleeding, purulent drainage. Throat without erythema, tonsillar hypertrophy or exudate. Airway patent. NECK: Trachea midline. Non tender CARDIOVASCULAR: Regular rate and rhythm without murmurs, gallops, or rubs. RESPIRATORY: Clear to auscultation. Breath sounds equal bilaterally. No wheezes, rales, or rhonchi. GASTROINTESTINAL: Abdomen soft, non-tender, nondistended. EXTREMITIES: No edema or joint tenderness. BACK: Nontender without deformity or crepitance. No flank tenderness. NEURO: AOx3. Motor functions grossly normal SKIN: No rash or erythema of visible areas Initial Vital Signs Initial Vital Signs: Vital Signs Temperature 98.0 F 01/22/24 21:08 Pulse Rate 78 01/22/24 21:08 Respiratory Rate 18 01/22/24 21:08 Blood Pressure 189/95 H 01/22/24 21:08 Pulse Oximetry 96 01/22/24 21:08 Oxygen Delivery Method Room Air 01/22/24 21:08 Course Orders Ordered: Discontinued Medications Fluorescein Sodium (Fluorescein 1 Mg Strip) 1 mg EYE-BOTH NOW ONE Stop: 01/22/24 20:56 Last Admin: 01/22/24 21:00 Dose: 1 mg Documented By: Proparacaine HCl (Proparacaine 0.5% Ophth Sunita) 1 drops EYE-BOTH NOW ONE Stop: 01/22/24 20:56 Last Admin: 01/22/24 22:04 Dose: 1 drops Documented By: AB Vital Signs Vital signs: Vital Signs - 8 hr 01/22/24 21:08 01/22/24 21:43 Temperature 98.0 F Pulse Rate 78 94 H Respiratory Rate 18 15 Blood Pressure 189/95 H 154/88 H Pulse Oximetry 96 94 Oxygen Delivery Method Room Air Room Air Medical Decision Making MDM Narrative Medical decision making narrative: Bilateral conjunctivitis minimally responsive to erythromycin ointment and thus far, previous intolerance to polymyxin drop ophthalmic, on fluorescein exam there is mucus stranding, no dendritic changes to the cornea, no corneal abrasions or foreign body material. Consider change to topical ophthalmic antibiotic with steroid, in case broader spectrum antibiotic necessary, or if allergic and needs response to topical steroid. Stop the topical erythro eye ointment advised. Given prescription for TobraDex, down time transient EMR system, could not transmit or print strip at time of discharge. Handwritten prescription for TobraDex 0.3%-0.1% ophthalmic solution, 1 drop both eyes 4 times daily for 7 days, 1 bottle. (eRx reporeduced for medical record). Advised to follow up with eye clinic Thursday, they are familiar with Dr. Win [facility] [place]. Return precautions discussed. Home with . Discharge Plan Departure Patient Disposition: Home Clinical Impression: Conjunctivitis Activity Restrictions/Additional Instructions: (hand written discharge note during transient downtime EMR problem with many tech) Summary of what was written: Conjunctivitis suspected, no corneal abrasions or foreign body seen on fluorescein examination of the eyes, symptoms seemed to be resistant to topical erythromycin, trial of TobraDex antibiotic/steroid formulation, follow up with eye clinic Thursday, contact information for Dr. Win. Return precautions discussed Prescriptions: New TobraDex 0.3-0.1 % ointment 1 applic EYE-BOTH QID 7 Days Qty: 3.5 0RF No Action progesterone micronized 200 mg capsule 200 mg PO ONCE PM mycophenolate mofetil 250 mg capsule 500 mg PO BID lisinopril 10 mg tablet PO citalopram 10 mg tablet PO amoxicillin-pot clavulanate 875-125 mg tablet 1 tab PO BID Qty: 14 0RF codeine-guaifenesin 10-100 mg/5 mL liquid 10 ml PO Q4-6H PRN (Reason: cough) Qty: 118 0RF ipratropium bromide 42 mcg (0.06 %) spray,non-aerosol intranasal polymyxin B sulf-trimethoprim 10,000 unit- 1 mg/mL drops 2 drp EYE-BOTH QID Qty: 10 0RF tacrolimus [Prograf] 1 MG capsule PO Qty: 0 erythromycin 5 mg/gram (0.5 %) ointment 0.5 inch EYE-BOTH Q4H 5 Days Qty: 3.5 0RF Referrals: Beba Win MD [Physician] - Mercy Beckman MD [Primary Care Provider] - Stand Alone Forms: Patient Portal/API/Survey
[2024-01-22] MEDS: FLUORESCEIN 1 MG STRIP EYE-BOTH (21:00)
[2024-01-22 21:08] VITALS: BP 189/95; PULSE 78; RESP 18; TEMP 36.7; O2SAT 96; BMI 28.3
[2024-01-22 21:43] VITALS: BP 154/88; PULSE 94; RESP 15; O2SAT 94
[2024-01-22] MEDS: PROPARACAINE 0.5% OPHTH SOL 1 DROPS EYE-BOTH (22:04)
== END 2024-01-22 21:43 | disposition home or self-care (01) ==
PROVIDERS: Emergency Provider Emergency Medicine; PCP Family Medicine
DX: H10.9 Unspecified conjunctivitis (principal)
CPT/HCPCS: 99282

== ENCOUNTER → 2024-10-11 16:10 | Outpatient (CLI) | payer OTHER, SELFPAY | LOC: LAB 16:10 | PROVIDERS: PCP Family Medicine; Visit Provider Chiropractor | DX: N30.01 Acute cystitis with hematuria (principal) | CPT/HCPCS: 87086 ==